=== PATIENT | male | born 1970 | race Two or more races ===

== ENCOUNTER 2020-06-03 12:39 | Outpatient (REF) | payer OTHER, SELFPAY ==
--- NOTE | 2020-06-03 | XR_ITS ---
EXAMINATION: XR SHOULDER, RIGHT XR SHOULDER, LEFT XR ELBOW, RIGHT XR ELBOW, LEFT CLINICAL INFORMATION: Joint pain. Evaluate for degenerative joint disease. COMPARISON: None. TECHNIQUE: AP, Grashey, scapular Y views of the right and left shoulder. AP, oblique, and lateral views of the right and left elbow. FINDINGS: Right Shoulder: No acute fracture or dislocation. Moderate acromioclavicular marginal osteophytes. Mild glenohumeral joint space narrowing with tiny inferior marginal osteophytes. No osseous erosion. No abnormal soft tissue calcification. Left Shoulder: No acute fracture or dislocation. Moderate acromioclavicular marginal osteophytes. Mild glenohumeral joint space narrowing with tiny inferior marginal osteophytes. No osseous erosion. No abnormal soft tissue calcification. Right Elbow: No acute fracture or dislocation. Mild ulnotrochlear joint space narrowing with small marginal osteophytes. Soft tissue ossifications measuring 0.3 and 0.1 cm adjacent to the medial epicondyle, which could indicate chronic underlying tendinopathy. Soft tissue ossification laterally measuring up to 0.5 cm, which could represent dystrophic ossification. No significant joint effusion. Left Elbow: No acute fracture or dislocation. Mild ulnotrochlear joint space narrowing with small marginal osteophytes. No osseous erosion. Dorsal olecranon enthesophyte. No significant joint effusion. XR/XR elbow LT min 3V IMPRESSION: RIGHT SHOULDER: Moderate acromioclavicular and minimal glenohumeral osteoarthritis. LEFT SHOULDER: Moderate acromioclavicular and minimal glenohumeral osteoarthritis. RIGHT ELBOW: Mild ulnotrochlear osteoarthritis. Ossification adjacent to the medial epicondyle, which could indicate chronic underlying tendinopathy. LEFT ELBOW: Mild ulnotrochlear osteoarthritis. Degenerative spurring at the dorsal olecranon.
--- NOTE | 2020-06-03 | XR_ITS ---
EXAMINATION: XR SHOULDER, RIGHT XR SHOULDER, LEFT XR ELBOW, RIGHT XR ELBOW, LEFT CLINICAL INFORMATION: Joint pain. Evaluate for degenerative joint disease. COMPARISON: None. TECHNIQUE: AP, Grashey, scapular Y views of the right and left shoulder. AP, oblique, and lateral views of the right and left elbow. FINDINGS: Right Shoulder: No acute fracture or dislocation. Moderate acromioclavicular marginal osteophytes. Mild glenohumeral joint space narrowing with tiny inferior marginal osteophytes. No osseous erosion. No abnormal soft tissue calcification. Left Shoulder: No acute fracture or dislocation. Moderate acromioclavicular marginal osteophytes. Mild glenohumeral joint space narrowing with tiny inferior marginal osteophytes. No osseous erosion. No abnormal soft tissue calcification. Right Elbow: No acute fracture or dislocation. Mild ulnotrochlear joint space narrowing with small marginal osteophytes. Soft tissue ossifications measuring 0.3 and 0.1 cm adjacent to the medial epicondyle, which could indicate chronic underlying tendinopathy. Soft tissue ossification laterally measuring up to 0.5 cm, which could represent dystrophic ossification. No significant joint effusion. Left Elbow: No acute fracture or dislocation. Mild ulnotrochlear joint space narrowing with small marginal osteophytes. No osseous erosion. Dorsal olecranon enthesophyte. No significant joint effusion. XR/XR shoulder RT min 2V IMPRESSION: RIGHT SHOULDER: Moderate acromioclavicular and minimal glenohumeral osteoarthritis. LEFT SHOULDER: Moderate acromioclavicular and minimal glenohumeral osteoarthritis. RIGHT ELBOW: Mild ulnotrochlear osteoarthritis. Ossification adjacent to the medial epicondyle, which could indicate chronic underlying tendinopathy. LEFT ELBOW: Mild ulnotrochlear osteoarthritis. Degenerative spurring at the dorsal olecranon.
--- NOTE | 2020-06-03 | XR_ITS ---
EXAMINATION: XR SHOULDER, RIGHT XR SHOULDER, LEFT XR ELBOW, RIGHT XR ELBOW, LEFT CLINICAL INFORMATION: Joint pain. Evaluate for degenerative joint disease. COMPARISON: None. TECHNIQUE: AP, Grashey, scapular Y views of the right and left shoulder. AP, oblique, and lateral views of the right and left elbow. FINDINGS: Right Shoulder: No acute fracture or dislocation. Moderate acromioclavicular marginal osteophytes. Mild glenohumeral joint space narrowing with tiny inferior marginal osteophytes. No osseous erosion. No abnormal soft tissue calcification. Left Shoulder: No acute fracture or dislocation. Moderate acromioclavicular marginal osteophytes. Mild glenohumeral joint space narrowing with tiny inferior marginal osteophytes. No osseous erosion. No abnormal soft tissue calcification. Right Elbow: No acute fracture or dislocation. Mild ulnotrochlear joint space narrowing with small marginal osteophytes. Soft tissue ossifications measuring 0.3 and 0.1 cm adjacent to the medial epicondyle, which could indicate chronic underlying tendinopathy. Soft tissue ossification laterally measuring up to 0.5 cm, which could represent dystrophic ossification. No significant joint effusion. Left Elbow: No acute fracture or dislocation. Mild ulnotrochlear joint space narrowing with small marginal osteophytes. No osseous erosion. Dorsal olecranon enthesophyte. No significant joint effusion. XR/XR elbow RT min 3V IMPRESSION: RIGHT SHOULDER: Moderate acromioclavicular and minimal glenohumeral osteoarthritis. LEFT SHOULDER: Moderate acromioclavicular and minimal glenohumeral osteoarthritis. RIGHT ELBOW: Mild ulnotrochlear osteoarthritis. Ossification adjacent to the medial epicondyle, which could indicate chronic underlying tendinopathy. LEFT ELBOW: Mild ulnotrochlear osteoarthritis. Degenerative spurring at the dorsal olecranon.
--- NOTE | 2020-06-03 | XR_ITS ---
EXAMINATION: XR LUMBOSACRAL SPINE CLINICAL INFORMATION: Joint pain. Evaluate for degenerative joint disease. COMPARISON: None TECHNIQUE: Three views of the lumbosacral spine. FINDINGS: Normal vertebral body alignment. The lumbar lordosis is maintained. Minimal loss of anterior vertebral body height at L2, which may represent normal variation versus a minimal, age indeterminant anterior endplate compression fracture. Mild multilevel loss of intervertebral disc height with anterior endplate osteophytes, most prominent at L3-L4. No lytic or blastic osseous lesion. No abnormal soft tissue calcification. XR/XR lumbar spine 2-3V IMPRESSION: 1. Minimal loss of anterior vertebral body height at L2, which may represent normal variation versus a minimal, age indeterminant anterior endplate compression fracture. 2. Mild multilevel degenerative disc disease, most prominent at L3-L4.
--- NOTE | 2020-06-03 | XR_ITS ---
EXAMINATION: XR SHOULDER, RIGHT XR SHOULDER, LEFT XR ELBOW, RIGHT XR ELBOW, LEFT CLINICAL INFORMATION: Joint pain. Evaluate for degenerative joint disease. COMPARISON: None. TECHNIQUE: AP, Grashey, scapular Y views of the right and left shoulder. AP, oblique, and lateral views of the right and left elbow. FINDINGS: Right Shoulder: No acute fracture or dislocation. Moderate acromioclavicular marginal osteophytes. Mild glenohumeral joint space narrowing with tiny inferior marginal osteophytes. No osseous erosion. No abnormal soft tissue calcification. Left Shoulder: No acute fracture or dislocation. Moderate acromioclavicular marginal osteophytes. Mild glenohumeral joint space narrowing with tiny inferior marginal osteophytes. No osseous erosion. No abnormal soft tissue calcification. Right Elbow: No acute fracture or dislocation. Mild ulnotrochlear joint space narrowing with small marginal osteophytes. Soft tissue ossifications measuring 0.3 and 0.1 cm adjacent to the medial epicondyle, which could indicate chronic underlying tendinopathy. Soft tissue ossification laterally measuring up to 0.5 cm, which could represent dystrophic ossification. No significant joint effusion. Left Elbow: No acute fracture or dislocation. Mild ulnotrochlear joint space narrowing with small marginal osteophytes. No osseous erosion. Dorsal olecranon enthesophyte. No significant joint effusion. XR/XR shoulder LT min 2V IMPRESSION: RIGHT SHOULDER: Moderate acromioclavicular and minimal glenohumeral osteoarthritis. LEFT SHOULDER: Moderate acromioclavicular and minimal glenohumeral osteoarthritis. RIGHT ELBOW: Mild ulnotrochlear osteoarthritis. Ossification adjacent to the medial epicondyle, which could indicate chronic underlying tendinopathy. LEFT ELBOW: Mild ulnotrochlear osteoarthritis. Degenerative spurring at the dorsal olecranon.
== END 2020-06-03 12:40 | disposition home or self-care (01) ==
LOC: HO.HMGCX 12:39
PROVIDERS: Visit Provider Internal Medicine
DX: M47.817 Spondylosis without myelopathy or radiculopathy, lumbosacral region (principal); M19.012 Primary osteoarthritis, left shoulder; M19.011 Primary osteoarthritis, right shoulder; M19.021 Primary osteoarthritis, right elbow; M19.022 Primary osteoarthritis, left elbow
CPT/HCPCS: 72100; 73030; 73080

== ENCOUNTER 2023-12-14 09:00 | Outpatient (AMB) | payer BC, SELFPAY ==
--- NOTE | 2023-12-14 09:01 | A.OFFPC_ITS ---
Vital Signs 12/14/23 09:05 Height 5 ft 9 in Weight 164 lb BMI 24.2 BP 126/80 Blood Pressure Location Rt brachial Position Sitting Pulse 62 Pulse Source Pulse Oximeter Pulse Oximetry (%) 96 Oxygen Delivery Method Room Air Intake Visit Reasons: Est. Care/Requesting PE Intake Note: pt is here for new patient, establish care. patient states his left shoulder has been bothering him as well as his left heel. Recruit Instructor Required: No Allergies No Known Allergies Allergy (Verified 12/14/23 09:02) Medication List - Last Reconciled 12/14/23 by VLAD Lance No Known Home Meds Tobacco use date assessed: 12/14/23 Dental Screening Dental Screen Date: 12/14/23 Did you have a dental visit in the last 12 months?: Yes Did you have a dental problem in the last 6 months where you did not have access to dental care?: No Was dental information given to patient?: Patient has dentist HPI Est. Care/Requesting PE HPI Details New pt is here for a PE. Will order labs. Due for PSA, will order. Denies dribbling with urination, weak stream, and frequent nocturia. Pt reports having a colon screen approximately 7-8 years ago. He has a family hx of colon cancer (brother diagnosed at age 65). Will refer to GI. Pt c/o left heel pain. ? plantar fasciitis vs heel spur. Will order XR. Pt also c/o left anterior shoulder pain. He had a previous XR which showed moderate acromioclavicular and minimal glenohumeral osteoarthritis. Pt has seen a chiropractor for this. Will refer to PT. [facility] Surgical History No pertinent past surgical history Family History Mother No problems noted. Father Diabetes High blood pressure Social History Housing: House Alcohol intake: current Alcohol intake frequency: a few times a month Patient Tobacco Use Status: Never used Tobacco e-Cigarette/Vaping Use: Never Used Second Hand Smoke Exposure: No service: No Current occupational status: employed Current occupation: [employer] [place] [employer] Current occupational exposures/hazards: No Cognitive needs: No Hearing needs: No Vision needs: Yes Questionnaire PHQ-9 Over the last 2 weeks, how often have you been bothered by any of the following problems? 1. Little interest or pleasure in doing things: not at all 2. Feeling down, depressed, or hopeless: not at all 3. Trouble falling or staying asleep, or sleeping too much: not at all 4. Feeling tired or having little energy: not at all 5. Poor appetite or overeating: not at all 6. Feeling bad about yourself - or that you are a failure or have let yourself or your family down: not at all 7. Trouble concentrating on things, such as reading the newspaper or watching television: not at all 8. Moving or speaking so slowly that other people could have noticed. Or the opposite - being so fidgety or restless that you have been moving around a lot more than usual: not at all 9. Thoughts that you would be better off or of hurting yourself in some way: not at all Total score: 0 Depression Screening Interpretation: Negative Depression Screening Done: Yes 32790 - PHQ-9 Billing: Yes Source: Developed by Drs. Darrell England, Karissa Small, Jonathan Pinto and colleagues, with an educational sixto from [employer]. Thrive Questionnaire Date Thrive assessed: 12/14/23 I am a: Patient What is your living situation today?: I have a steady place to live Within the past 12 months, did the food you bought not last and you didn't have the money to get more?: Never true Within the past 12 months, did you worry whether your food would run out before you got money to buy more?: Never true Do you have trouble paying for medicines?: No Do you have trouble getting transportation to medical appointments?: No Do you have trouble paying your heating and electricity bill?: No Do you have trouble taking care of your child, family member or friend?: No Do you have trouble with day-to-day activities such as bathing, preparing meals, shopping, managing finances, etc.?: No Are you currently unemployed and looking for a job?: No Are you interested in more education?: No Please select the resources that you would like help with: None Currently or been in a relationship where the following occur: No concerns reported THRIVE Score: 0 AUDIT C Alcohol Use Questionnaire (AUDIT-C) 1. How often do you have a drink containing alcohol?: 2-3 times a week 2. How many drinks containing alcohol do you have on a typical day when you are drinking?: 1 or 2 3. How often do you have six or more drinks on one occasion?: Less than monthly Total Score: 4 Score Reviewed/Action Taken: Yes ENRIQUE-7 AMB Questionnaire ENRIQUE-7 Date ENRIQUE - 7 assessed: 12/14/23 Feeling nervous, anxious, or on edge: 0 = Not at all Not being able to stop or control worryin = Not at all Worrying too much about different things: 0 = Not at all Trouble relaxin = Not at all Being so restless that it is hard to sit still: 0 = Not at all Becoming easily annoyed or irritable: 0 = Not at all Feeling afraid as if something awful might happen: 0 = Not at all Total ENRIQUE-7 score (0-4 normal; 5-9 mild; 10-14 moderate; 15-21 severe): 0 Source: Developed by Drs. Darrell England, Karissa Small, Jonathan Pinto and colleagues, with an educational sixto from [employer]. ENRIQUE-7 Assessment Billing ENRIQUE-7 Assessment Tool: ENRIQUE-7 Assessment 82634 Review of Systems Const Denies chills and Denies fever(s) Eyes Denies blurry vision ENT Denies vertigo, Denies dizziness and Denies sore throat Card Denies chest pain at rest, Denies chest pain with activity, Denies diaphoresis, Denies dyspnea and Denies dyspnea on exertion Resp Denies cough, Denies dyspnea, Denies dyspnea on exertion and Denies wheezing GI Denies abdominal pain, Denies melena, Denies hematochezia, Denies constipation, Denies diarrhea and Denies loose stools Denies hematuria Musc Denies numbness and Denies tingling Skin/Breast Denies lesions Neuro Denies vertigo, Denies dizziness, Denies numbness and Denies tingling Psych Denies anxiety, Denies depression, Denies homicidal ideation, Denies suicidal ideation and Denies other (substance abuse) Aller/Immun Denies wheezing Physical exam (Primary Care) Vital Signs: Last Vital Signs Pulse 62 12/14/23 09:05 BP 126/80 12/14/23 09:05 Pulse Ox 96 12/14/23 09:05 Oxygen Delivery Method Room Air 12/14/23 09:05 BMI result Body Mass Index 24.2 Tobacco/Smoking Status: Tobacco use Status Tobacco use date assessed 12/14/23 12/14/23 09:03 Patient Tobacco Use Status Never used Tobacco 12/14/23 09:08 e-Cigarette/Vaping Use Never Used 12/14/23 09:08 PHQ-9: PHQ-9 Score PHQ-9: Total score 0 12/14/23 09:03 Depression Screening Interpretation: Negative Thrive Assessment: Date of Thrive Assessment Date Thrive assessed 12/14/23 12/14/23 09:03 Currently or been in a relationship where the following occur: No concerns reported Const General: cooperative Nutritional Appearance: well nourished Orientation/consciousness: patient oriented x3 HENMT Head: Yes normal to inspection, Yes normocephalic and Yes atraumatic Ears: TM's normal bilaterally Eyes General: appearance normal, both eyes and all related structures Alignment and Position: alignment normal and position normal Neck Neck: Yes normal visual inspection and Yes no lymphadenopathy Thyroid: Thyroid normal Resp Effort & Inspection: normal respiratory effort Auscultation: clear to auscultation bilaterally Cardio Rate: regular rate Rhythm: regular rhythm Heart sounds: S1 normal heart sound present, S2 normal heart sound present and no murmurs GI Palpation (GI): Soft to palpation and nontender Auscultation: normal bowel sounds Male General Exam: Yes normal external exam Penis: normal penis Scrotum: scrotum normal, testes descended bilaterally and no inguinal hernias Testes: no testicular mass Skin Rashes: no rashes Neuro General: patient oriented x3, moves all extremities, no focal motor deficits and deep tendon reflexes 2+ bilaterally Romberg Test: Negative Extrem Other: left shoulder: + neers, + jobes, tenderness noted with dorsi flexion of toes and palpation of left heel Psych Appearance: grossly normal Mental Status: mental status grossly normal Speech and movement: Normal speech and movement present Affect: normal affect Attitude: cooperative Thought process: Normal thought process present Thought content: Normal thought content present Insight: Good insight present (Psych) Judgement: Good judgement present (Psych) Assessment and Plan Assessment & Plan (1) Physical exam: Code(s): Z00.00 - Encounter for general adult medical examination without abnormal findings Plan: Labs ordered (2) Screening for prostate cancer: Code(s): Z12.5 - Encounter for screening for malignant neoplasm of prostate Plan: PSA ordered (3) Screening for colon cancer: Code(s): Z12.11 - Encounter for screening for malignant neoplasm of colon Plan: Referred to GI (4) Family hx of colon cancer: Code(s): Z80.0 - Family history of malignant neoplasm of digestive organs Plan: Referred to GI (5) Pain of left heel: Code(s): M79.672 - Pain in left foot Plan: XR ordered (6) Left shoulder pain: Code(s): M25.512 - Pain in left shoulder Plan: PT Plan The patient agreed to the use of a medical billing representative for this encounter. Scribed for ASHLEY Zepeda-BC by Carmina Denson medical billing representative, on 12/14/2023 at 09:15 EST. Orders: Orders Complete Blood Count Auto Diff Today Z00.00 - Encounter for general adult medical examination without abnormal findings Comprehensive [place]. Panel Fast Today Z00.00 - Encounter for general adult medical examination without abnormal findings TSH reflex Free T4 Today Z00.00 - Encounter for general adult medical examination without abnormal findings UA CC w/rflx Micro + Cult Today Z00.00 - Encounter for general adult medical examination without abnormal findings Prostate Specific Antigen Scr Today Z12.5 - Encounter for screening for malignant neoplasm of prostate XR foot LT 2V Today M79.672 - Pain in left foot PT Evaluation and Treatment Today M25.512 - Pain in left shoulder Lipid Panel Today Z00.00 - Encounter for general adult medical examination without abnormal findings Referrals Gastroenterology Referral Z12.11 - Encounter for screening for malignant neoplasm of colon, Z80.0 - Family history of malignant neoplasm of digestive or siri Coding Level of Care Code New Pt Prev Care 40-64y([id number]) Diagnoses Physical exam Z00.00 Screening for prostate cancer Z12.5 Screening for colon cancer Z12.11 Family hx of colon cancer Z80.0 Pain of left heel M79.672 Left shoulder pain M25.512 Additional Codes ENRIQUE-7 Assessment Billing - ENRIQUE-7 Assessment Tool: ENRIQUE-7 Assessment [id number] ([id number])
[2023-12-14 09:05] VITALS: BP 126/80; PULSE 62; O2SAT 96; BMI 24.2
== END 2023-12-14 09:32 | disposition home or self-care (01) ==
PROVIDERS: PCP Nurse Practitioner Adult Health; Visit Provider Nurse Practitioner Family
DX: Z00.00 Encounter for general adult medical examination without abnormal findings (principal); M79.672 Pain in left foot; M25.512 Pain in left shoulder; Z12.5 Encounter for screening for malignant neoplasm of prostate; Z12.11 Encounter for screening for malignant neoplasm of colon; Z80.0 Family history of malignant neoplasm of digestive organs
CPT/HCPCS: 99386

== ENCOUNTER 2023-12-14 09:33 | Outpatient (REF) | payer BC, SELFPAY ==
--- NOTE | ~2023-12-14 | XR_ITS ---
EXAMINATION: XR FOOT, LEFT CLINICAL INFORMATION: Pain in left foot. COMPARISON: None available. TECHNIQUE: 2 views of the left foot. FINDINGS: Small plantar calcaneal spur. Mild posterior calcaneal spurring. Radiopaque marker placed by technologist to indicate the area of concern as indicated by the patient Toes are flexed, limiting evaluation. Along the medial aspect of the distal leg/ankle on the AP view. This area is not well evaluated on the AP view and dedicated views of the ankle should be considered for further evaluation. Moderate degenerative changes in the first metatarsophalangeal joint with joint space narrowing and hypertrophic change. XR/XR foot LT 2V IMPRESSION: 1. Moderate degenerative changes first metatarsophalangeal joint. 2. Small plantar calcaneal spur. Mild posterior calcaneal spurring. 3. Radiopaque marker placed by technologist to indicate the area of concern as indicated by the patient. Along the medial aspect of the distal leg/ankle on the AP view. This area is not well evaluated on the AP view and dedicated views of the ankle should be considered for further evaluation. Electronically signed by: Bailey Garrido MD 01/10/2024 10:35 AM EDT
== END 2023-12-14 09:34 | disposition home or self-care (01) ==
LOC: HO.HMGCX 09:33
PROVIDERS: PCP Nurse Practitioner Family; Visit Provider Nurse Practitioner Family
DX: M79.672 Pain in left foot (principal)
CPT/HCPCS: 73620

== ENCOUNTER 2023-12-20 15:17 | Outpatient (REF) | payer BC, SELFPAY ==
--- NOTE | ~2023-12-20 | US_ITS ---
EXAMINATION: US THYROID CLINICAL INFORMATION: Thyroid nodule. COMPARISON: None available. TECHNIQUE: Linear transducer grayscale and color Doppler examination with attention to the region of the thyroid. FINDINGS: SIZE: Measurements of the thyroid lobes and nodules are given in sagittal, anteroposterior and transverse dimensions respectively. Right Thyroid Lobe: 6.0 x 1.8 x 1.7 cm, volume 9.6 mL. Parenchyma: The gland echotexture is mildly heterogeneous. Thyroid vascularity is increased. Left Thyroid Lobe: 5.1 x 2.0 x 1.8 cm, volume 9.1 mL. Parenchyma: The gland echotexture is mildly heterogeneous. Thyroid vascularity is increased. Isthmus: 0.2 cm in maximum AP dimension. Estimated total number of nodules greater than or equal to 1 cm: 0. [employer] nodules are described as follows: NODES: No lymphadenopathy is seen in the tissue surrounding the thyroid gland. US/US thyroid IMPRESSION: Diffusely heterogeneous, hypervascular thyroid gland. No suspicious thyroid nodules identified. ACR TI-RADS RECOMMENDATION REFERENCE: Ultrasound-guided fine-needle aspiration, followup ultrasound, no further follow up. * TR1 (0 point) and TR2 (2 points): No FNA or follow up. * TR3 (3 points): FNA if more than or equal to 2.5 cm in maximum dimension, followup ultrasound in 1, 3 and 5 years if 1.5 to 2.4 cm in maximum dimension. * TR4 (4-6 points): FNA if more than or equal to 1.5 cm in maximum dimension, followup ultrasound in 1, 2, 3 and 5 years if 1 to 1.4 cm in maximum dimension. * TR5 (more than or equal to 7 points): FNA if more than or equal to 1 cm in maximum dimension, followup ultrasound every year for 5 years if 0.5 to 0.9 cm in maximum dimension. * TR3, TR4 or TR5 nodules that are below the size threshold for followup receive no follow up. Electronically signed by: Bailey Garrido MD 01/04/2024 10:22 AM EDT
== END 2023-12-20 15:18 | disposition home or self-care (01) ==
LOC: HO.HMGCX 15:17
PROVIDERS: PCP Nurse Practitioner Family; Visit Provider Nurse Practitioner Family
DX: E04.1 Nontoxic single thyroid nodule (principal)
CPT/HCPCS: 76536

== ENCOUNTER 2023-12-27 06:33 | Outpatient (REF) | payer BC, SELFPAY ==
[2023-12-27 10:31] LABS: MANUAL DIFF FLAG NO
[2023-12-27 10:35] LABS: Basophils Percent Auto 0.4 % (0-2); Eosinophils Absolute Auto 0.1 X10*3/uL (0.0-0.4); Hematocrit 45.9 % (42.0-52.0); Hemoglobin 15.8 g/dl (14.0-18.0); Imm Gran Abs Auto 0.01 X10*3/uL (0.00-0.03); Imm Gran Pct Auto 0.2 % (0.0-0.4); Lymphocytes Absolute Auto 1.8 X10*3/uL (1.2-4.9); Lymphocytes Percent Auto 37.2 % (20-40); Mean Corpuscular HGB Conc 34.4 g/dl (31.0-36.0); Mean Corpuscular Hemoglobin 31.5 pg (27.0-33.0); Mean Corpuscular Volume 91.6 fL (80.0-98.0); Mean Platelet Volume 10.4 fL (9.4-12.4); Monocytes Absolute Auto 0.5 X10*3/uL (0.1-1.2); Monocytes Percent Auto 9.4 % (2-11); Neutrophils Absolute Auto 2.5 x10*3/uL (2.0-8.3); Neutrophils Percent Auto 50.8 % (45-73); Platelet Count 220 X10*3/uL (160-400); Red Blood Count 5.01 X10*6/uL (4.60-5.80); Red Cell Distribution Width 11.8 % (11.0-16.0); White Blood Count 4.9 X10*3/uL (4.8-10.8)
[2023-12-27 10:54] LABS: Appearance Urine Clear; Color Urine Yellow; Glucose Urine UA Negative (Negative); Leukocyte Esterase Urine Negative (Negative); Nitrite Urine Negative (Negative); PH 6.5 (5.0-9.0); UMIC TRIGGER UACC YES; Urine Blood Trace (Negative); Urine Ketones Negative (Negative); Urine Protein Negative (Neg-Trace)
[2023-12-27 10:57] LABS: Alanine Aminotransferase 29 U/L (0-40); Albumin Level 4.1 g/dL (3.5-5.0); Alkaline Phosphatase 38 U/L (39-117); Anion Gap 10 (12-20); Aspartate Amino Transferase 29 U/L (5-37); Bilirubin Total 0.7 mg/dL (0.0-1.0); Blood Urea Nitrogen 16 mg/dL (9-16); Calcium 9.7 mg/dL (8.4-10.2); Carbon Dioxide 28 mmol/L (22-29); Chloride 104 mmol/L (96-108); Cholesterol 184 mg/dL (<200); Estimated Glomerular Filt Rate > 60; Glucose Fasting 93 mg/dL (60-99); HDL Cholesterol 44 mg/dL (>40); LDL Cholesterol Calculated 119 mg/dL (<100); Potassium 4.1 mmol/L (3.3-5.1); Sodium 138 mmol/L (135-145); Total Protein 7.6 g/dL (6.5-8.0); Triglycerides 105 mg/dL (<150)
[2023-12-27 10:59] LABS: Bacteria Urine None Seen (None Seen); Hyaline Casts Urine 0-2 /LPF (0-2); Squamous Epithelial Cell Urine 0-2 /HPF (0-2); WBC Urine 0-5 /HPF (0-5)
[2023-12-27 11:07] LABS: Prostate Specific Antigen Scr 0.37 ng/mL (<0.05-4.0)
[2023-12-27 11:15] LABS: TSH reflex Free T4 1.29 uIU/mL (0.32-4.0)
== END 2023-12-27 06:34 | disposition home or self-care (01) ==
LOC: HO.HMGCLDS 06:33
PROVIDERS: PCP Nurse Practitioner Family; Visit Provider Nurse Practitioner Family
DX: Z00.00 Encounter for general adult medical examination without abnormal findings (principal); Z12.5 Encounter for screening for malignant neoplasm of prostate
CPT/HCPCS: 36415; 80053; 80061; 81001; 84153; 84443; 85025

== ENCOUNTER 2023-12-31 08:23 | Outpatient (REF) | payer BC, SELFPAY ==
[2023-12-31 11:20] LABS: Urine Cytology See Pathology rpt
[2023-12-31 11:28] LABS: Appearance Urine Clear; Color Urine Yellow; Glucose Urine UA Negative (Negative); Leukocyte Esterase Urine Negative (Negative); Nitrite Urine Negative (Negative); PH 6.5 (5.0-9.0); Specific Gravity - Urine <= 1.005 (1.005-1.025); Urine Blood Negative (Negative); Urine Ketones Negative (Negative); Urine Protein Negative (Neg-Trace)
[2023-12-31 11:33] LABS: Bacteria Urine None Seen (None Seen); Hyaline Casts Urine 0-2 /LPF (0-2); RBC Urine 0-2 /HPF (0-2); Squamous Epithelial Cell Urine 0-2 /HPF (0-2); WBC Urine 0-5 /HPF (0-5)
== END 2023-12-31 08:24 | disposition home or self-care (01) ==
LOC: HO.HMGCLDS 08:23
PROVIDERS: PCP Nurse Practitioner Family; Visit Provider Nurse Practitioner Family
DX: Z00.00 Encounter for general adult medical examination without abnormal findings (principal); R31.29 Other microscopic hematuria
CPT/HCPCS: 81001; 81003; 87086; 88112

== ENCOUNTER 2024-01-24 13:53 | Outpatient (RCR) | payer BC, SELFPAY ==
--- NOTE | 2024-01-24 15:16 | MHC.PT.EP ---
[facility] [place] Office [place] Office [place] Office [address] Renée Chan [address] [phone] F: [phone] F: [phone] F: [phone] F: [phone] Physical Therapy Plan of Care Date of Evaluation: 01/24/24 Date of Surgery: Diagnosis: This is a 54 yo male presenting to skilled PT with a script for pain in L shoulder. Assessment: This is a 54 yo male presenting to skilled PT with a script for pain in L shoulder. Patient with ongoing L shoulder pain for about 4 years, progressively getting worse with time. He has been to chiropractor which helped for the day but then the pain returned and was worse in nature (not currently doing this anymore). Pain increases at night when laying on the R, pulling, driving, OH reaching. His pain is constant. His pain is located at the upper trap, ACJ and lateral arm. He gets JORDAN's from his pain and also reports B hand numbness. He takes Advil for pain relief. Assessment reveals pain that ranges from up to a 7/10 at the worst. Patient demos decreased L shoulder and cervical ROM, strength of L shoulder, upper back and scapular stabilizers. He demos increased scapular winging on the L, upper trap compensatory movements, very forward head posture as well as increased thoracic kyphosis. He was TTP at GHJ joint line, UT, medial border of scap and thoracic spine. He would benefit from PT focusing on cervical, thoracic and shoulder ROM, strengthening. Based on functional limitations, impaired QOL and pain tolerance patient is a good candidate for skilled PT 2x/wk for 6wks. Frequency and Duration: The patient will be seen 2x/wk for 4wks Short Term Goals: (In 2 weeks) Demo I with HEP Improve shoulder AROM by at least 10 degs Demo proper scapular recruitment with appropriate shoulder strengthening exercises, decreased scapular winging will be noted with shoulder motions Alf Goals: (in 6 wks) Improve shoulder nonpainful AROM to almost near equal B Demo at least 1 grade improvement in MMT for shoulder Improve SPADI by at least 10 points Improve overall functional QOL by at least 50% Treatment Plan: Modalities to reduce pain, spasms and effusion. Manual therapy to restore motion and function. Therapeutic exercise to improve strength and flexibility. Neuromuscular re-education for posture and balance. Therapeutic activities to return to functional activities of daily living. Electronically signed by: Dimple Judge PT Please sign and return to therapist. Thank you for your referral.
--- NOTE | 2024-02-10 07:13 | MHC.PT.DC ---
[facility] [place] Office [place] Office [place] Office [address] [phone] F: [phone] F: [phone] F: [phone] F: [phone] Physical Therapy Discharge Report Diagnosis: This is a 54 yo male presenting to skilled PT with a script for pain in L shoulder. Date of Surgery: Date of Evaluation: 01/24/24 Date of Discharge: 02/10/24 Treatments to Date: 1 Cancellations to Date: 2 No Shows to Date: 0 Discharge Status: Physician Discontinued Tx Recommend MD Follow-up Discharge Summary: Patient had a new incident at work causing fractured ribs. Due to new change in status, patient was DC'd and he will follow up with us again when medically cleared by PCP or ortho. Electronically signed by: Dimple Judge PT Please sign and return to therapist. Thank you for your referral.
== END 2024-02-10 07:15 | disposition home or self-care (01) ==
LOC: HO.PTCHIC 13:53
PROVIDERS: PCP Nurse Practitioner Family; Visit Provider Nurse Practitioner Family
DX: M25.512 Pain in left shoulder (principal)
CPT/HCPCS: 97110; 97162

== ENCOUNTER 2024-02-09 15:29 | Outpatient (REF) | payer BC, SELFPAY ==
--- NOTE | ~2024-02-09 | CT_ITS ---
EXAMINATION: CT UROGRAM - CT ABDOMEN AND PELVIS WITHOUT AND WITH CONTRAST CLINICAL INFORMATION: Microscopic hematuria COMPARISON: CT abdomen and pelvis 04/04/2008 TECHNIQUE: Multidetector volumetric imaging was performed through the abdomen prior to IV contrast. The abdomen and pelvis were then reexamined after the administration of 85 mL Omnipaque 350 intravenous contrast. Additional 2-D coronal and sagittal reformatted images and axial 3-D maximum intensity projection MIP images are generated on the CT workstation. This CT examination was performed using dose optimization techniques as appropriate, variously including the following: *Automated exposure control *Adjustment of mA and/or kV according to patient size (this includes techniques or standardized protocols for targeted exams where dose is matched to indication/reason for exam; i.e. extremities or head) *Use of iterative reconstruction technique DLP: 767 mGy-cm UROGRAPHIC FINDINGS: Noncontrast imaging through the kidneys ureters and bladder show no urinary tract calculi.After the injection of contrast, there was prompt excretion bilaterally with symmetric CT nephrograms.The right kidney measures 12.0 cm and the left kidney measures 11.7 cm in maximal length. There are bilateral extrarenal pelves. No hydronephrosis. No filling defects are seen in the collecting systems. No mucosal abnormalities are seen. There are no renal masses. There are single ureters present which follow a normal course to the bladder. Bladder appears unremarkable. Bilateral ureteral jets are seen. The prostate is minimally enlarged measuring 4.4 x 2.9 x 4.7 cm for a volume of 31 cc. Seminal vesicles appear normal. The bladder is only mildly distended and has a symmetrically thickened wall no filling defects are seen. The bladder is only partially filled with contrast and evaluation for bladder masses is suboptimal. NON-UROGRAPHIC FINDINGS: Lung Bases: There is right basilar atelectasis present with a tiny right pleural effusion. No left-sided effusion is seen. No suspicious lung masses Liver, Gallbladder and Biliary Tree: The liver is normal in size, shape, and attenuation. The superior aspect of the right lobe of the liver is not included on the exam. No focal hepatic lesion or biliary ductal dilatation is seen. The gallbladder is unremarkable with no evidence of radiopaque gallstones, gallbladder wall thickening, or obvious pericholecystic inflammatory changes. Pancreas: Unremarkable. Spleen: Unremarkable. Adrenal Glands: Unremarkable. Gastrointestinal Tract: The small and large bowel are unremarkable. The appendix is unremarkable. Abdominal Wall: No significant hernia is appreciated. Lymph Nodes: Normal. Vascular: Unremarkable. Pelvic Viscera: An abnormal pelvic mass is not seen. Osseous Structures: Mild degenerative changes are present in the spine A bone island is seen in the right iliac bone. CT/CT urogram IMPRESSION: 1. A cause for the patient's microscopic hematuria has not been found. 2. Incidental note made of a tiny right pleural effusion with right basilar atelectasis and mild degenerative changes in the spine. Electronically signed by: Juanpablo Duron MD 04/04/2024 08:32 AM EST
[2024-02-09 16:02] LABS: Alanine Aminotransferase 23 U/L (0-40); Albumin Level 4.3 g/dL (3.5-5.0); Alkaline Phosphatase 42 U/L (39-117); Anion Gap 11 (12-20); Aspartate Amino Transferase 18 U/L (5-37); Bilirubin Total 0.5 mg/dL (0.0-1.0); Blood Urea Nitrogen 18 mg/dL (9-16); Calcium 9.5 mg/dL (8.4-10.2); Carbon Dioxide 29 mmol/L (22-29); Chloride 102 mmol/L (96-108); Estimated Glomerular Filt Rate > 60; Glucose Random 91 mg/dL (60-115); Sodium 138 mmol/L (135-145); Total Protein 7.9 g/dL (6.5-8.0)
[2024-02-09] MEDS: iohexoL 350 MG/ML 100 ML INFUS..BTL IV (17:06)
== END 2024-02-09 15:30 | disposition home or self-care (01) ==
LOC: HO.CT 15:29
PROVIDERS: PCP Nurse Practitioner Family; Visit Provider Nurse Practitioner Family
DX: R31.29 Other microscopic hematuria (principal)
CPT/HCPCS: 36415; 74178; 80053; Q9967

== ENCOUNTER 2024-02-21 13:48 | Outpatient (REF) | payer BC, SELFPAY ==
[2024-02-21 17:24] LABS: Urine Cytology See Pathology rpt
== END 2024-02-21 13:49 | disposition home or self-care (01) ==
LOC: HO.LNP 13:48
PROVIDERS: PCP Nurse Practitioner Family; Visit Provider Nurse Practitioner Family
DX: R31.0 Gross hematuria (principal)
CPT/HCPCS: 81003; 88112

== ENCOUNTER 2024-02-21 13:48 | Outpatient (AMB) | payer BC, SELFPAY ==
--- NOTE | 2024-02-21 14:10 | A.OFFVIS_ITS ---
Intake Visit Reasons: microscopic hematuria Intake Note: New Patient presents for initial visit for microhematuria Urology Medications: none Blood Thinner: none Hand Singer Required: No Accompanied by: Unknown Allergies No Known Allergies Allergy (Verified 02/21/24 14:50) Medication List - Last Reconciled 02/21/24 by VLAD Morales acetaminophen ER 650 mg PO Q8H PRN ibuprofen mg PO methocarbamol mg PO oxycodone 5 mg PO Q6H PRN HPI Comments Details: Neri is a pleasant 54-year-old male patient of Dr. Gonsalez who was accompanied by his significant other at today's office visit. He presents to the office today as a new patient for microscopic/gross hematuria. In discussion with the patient today he reports noting a few episodes of gross hematuria after consumption of hard alcohol. He reports having followed up with his PCP at which time a CT urogram was ordered for further assessment evaluation. These results remain pending. When asked he denies any previous history of nicotine dependence and or workplace chemical exposure. He currently denies any bothersome urinary issues. Previous urine cytology results reviewed with the patient today. 12/23 Negative for high-grade urothelial carcinoma. We discussed at length reasons for blood in the urine may include but are not limited to kidney stones, cancer in the urinary tract, BPH, kidney stone disease or inflammatory conditions of the urinary tract. I have discussed workup to include cystoscopy evaluation. He denies urinary urgency, urinary frequency, incontinence, nocturia, dysuria, foul smelling urine, changes to urinary stream, flank pain, fever, and or chills. He is happy with his current voiding parameters. In review of patients chart PSA 12/23 0.4. PFSH Surgical History No pertinent past surgical history Family History Mother No problems noted. Father Diabetes High blood pressure Social History Housing: House Alcohol intake: current Alcohol intake frequency: a few times a month Patient Tobacco Use Status: Never used Tobacco e-Cigarette/Vaping Use: Never Used Second Hand Smoke Exposure: No service: No Current occupational status: employed Current occupation: [employer] Current occupational exposures/hazards: No Cognitive needs: No Hearing needs: No Vision needs: Yes Review of Systems Const All systems reviewed & are unremarkable except as noted in HPI and below Physical Exam Const General: cooperative, healthy appearing, comfortable, no acute distress, well developed, alert and awake Orientation/consciousness: patient oriented x3 Limitations: no limitations HEENT Head: Yes normal to inspection, Yes normocephalic and Yes atraumatic Ears: hearing grossly normal bilaterally Eyes General: appearance normal, both eyes and all related structures Neck Neck: Yes normal visual inspection and Yes trachea midline Chest Chest palpation & inspection: normal inspection of the chest Resp Effort & Inspection: normal respiratory effort and able to speak in complete sentences Cardio Rate: regular rate GI Inspection: Yes normal to inspection General: Yes no CVA tenderness Back/Spine/Pelvis Back: no CVA tenderness Skin General skin exam: no rashes or lesions noted Neuro General: patient oriented x3 Extrem General: Yes normal to inspection Psych Appearance: grossly normal and well kempt Mental Status: mental status grossly normal Speech and movement: Normal speech and movement present and Clear speech present Affect: normal affect Attitude: cooperative Thought process: Normal thought process present Thought content: Normal thought content present Insight: Fair insight present (Psych) Judgement: Fair judgement present (Psych) Results AMB Urinalysis, Automated UA Leukoctes 0 Sophia/uL Last Edit by Tim Cano on 02/21/24 14:24 UA Nitrite Last Edit by Tim Cano on 02/21/24 14:24 UA Urobilinogen 0.2 mg/dL Last Edit by Tim Cano on 02/21/24 14:24 UA Protein 15 mg/dL Last Edit by Tim Cano on 02/21/24 14:24 UA pH 6.0 Last Edit by Tim Cano on 02/21/24 14:24 UA Blood 80 Josh/uL Last Edit by Tim Lucaseladia on 02/21/24 14:24 UA Specific [place] 1.020 Last Edit by Tim Lucaseladia on 02/21/24 14:24 UA Ketone Last Edit by Tim Lucaseladia on 02/21/24 14:24 UA Bilirubin 2 mg/dL Last Edit by Tim Lucaseladia on 02/21/24 14:24 UA Glucose 0 mg/dL Last Edit by Himamartinez Shayyeladia on 02/21/24 14:24 Results Reviewed Results Reviewed: Laboratory Last Values Urine pH (Auto) 6.0 02/21/24 14:22 Specific [place] (Auto) 1.020 02/21/24 14:22 Urine Protein (Auto) 15 mg/dL 02/21/24 14:22 Glucose (UA)(Auto) 0 mg/dL 02/21/24 14:22 Urine Blood (Auto) 80 Josh/uL 02/21/24 14:22 Urine Bilirubin (Auto) 2 mg/dL 02/21/24 14:22 Urine Urobilinogen (Auto) 0.2 mg/dL 02/21/24 14:22 Leukocyte Esterase (Auto) 0 Sophia/uL 02/21/24 14:22 Assessment & Plan Assessment & Plan (1) Microhematuria: Code(s): R31.29 - Other microscopic hematuria Category: Medical (2) Gross hematuria: Code(s): R31.0 - Gross hematuria Category: Medical Plan In office urinalysis results reviewed with the patient today; will send for urine cytology. Recent urine cytology results reviewed with the patient today; as noted above. CT urogram remains pending. Previous PSA results reviewed with the patient today; as noted above. Discussed at length potential causes of microscopic hematuria as well as further workup to include in office cystoscopy. Risks and benefits were discussed of further intervention. All questions were answered. He denies any bothersome urinary issues or concerns at this time. Discussed bladder triggers/irritants. He reports be happy with current voiding parameters. Will schedule for next available in office cystoscopy. Follow-up per doctor's orders; or sooner with any issues, concerns, and or questions. Orders: Orders AMB Urinalysis Automated Today Z13.9 - Encounter for screening, unspecified Patient Instructions: The patient had an opportunity to ask questions regarding the treatment plan. All questions were answered. Physical exam, labs, and imaging were discussed and reviewed in detail. As well as risks, benefits, and discussion of treatment choices. No major barriers to understanding were identified. The patient expressed understanding and agreement with the above treatment plan. The patient was made aware they should contact our office by phone for worsening of their current condition, the appearance of new symptoms, or with any questions or concerns. Compliance is encouraged with any medications and follow up testing that is ordered. It is a privilege to be allowed the opportunity to participate in? your urological care.? Again, if you have any questions or concerns If you have any questions or concerns please do not hesitate to contact me. The office is [phone]. This note is constructed using voice recognition software. While every effort has been made to ensure accuracy printing machine operator errors may have been included. Yours sincerely, VLAD Morales Coding Level of Care Code New Pt Level 3 (64935) Diagnoses Microhematuria R31.29 Gross hematuria R31.0
== END 2024-02-21 14:59 | disposition home or self-care (01) ==
PROVIDERS: PCP Nurse Practitioner Family; Visit Provider Nurse Practitioner Family
DX: R31.29 Other microscopic hematuria (principal); R31.0 Gross hematuria; Z13.9 Encounter for screening, unspecified
CPT/HCPCS: 99203

== ENCOUNTER 2024-04-03 08:54 | Outpatient (AMB) | payer BC, SELFPAY ==
[2024-04-03 09:17] VITALS: BP 128/68; PULSE 60; O2SAT 98; BMI 24.8
--- NOTE | 2024-04-03 09:17 | A.OFFVIS_ITS ---
Vital Signs 04/03/24 09:17 Height 5 ft 9 in Weight 167 lb 15.876 oz BMI 24.8 BP 128/68 Blood Pressure Location Rt brachial Position Sitting Pulse 60 Pulse Source Pulse Oximeter Pulse Oximetry (%) 98 Oxygen Delivery Method Room Air Intake Visit Reasons: Colonoscopy screening Intake Note: Relevant Flags or Indicators ? Requires Dinkey Engine Operator? Sophia He presents in office today for a scheduled colo scrn Initial/Routine Relevant GI Sx as reported per pt? Acid reflux, bloating. ? Hx of any recent surgeries? None Dinkey Engine Operator Required: No Accompanied by: Spouse Allergies No Known Allergies Allergy (Verified 04/05/24 09:29) HPI HPI Colonoscopy screening : Details: 54 year old? male with past medical history of thyroid nodule, microhematuria is here today for pre colonoscopy screening.? Patient was sent to us by his PCP.? T his is his first colonoscopy screening.? Patient denies any gastrointestinal symptoms in the past or at present.? However patient does admit to have occasional acid reflux depending on what he eats and abdominal bloating. Patient reports that his brother was diagnosed with colorectal cancer at age 65.? Denies history of difficulty with sedation or anesthesia in the past.? Negative for history of sleep apnea.? Denies any history of cardiac, renal, pulmonary, or hepatic disease.?? No history of infectious? diseases like hepatitis A, B, C, HIV or tuberculosis.? Patient is not on any anticoagulation therapy [facility] Surgical History No pertinent past surgical history Family History Mother No problems noted. Father Diabetes High blood pressure Social History Housing: House Alcohol intake: current Alcohol intake frequency: a few times a month Patient Tobacco Use Status: Never used Tobacco e-Cigarette/Vaping Use: Never Used Second Hand Smoke Exposure: No service: No Current occupational status: employed Current occupation: [employer] Current occupational exposures/hazards: No Cognitive needs: No Hearing needs: No Vision needs: Yes Review of Systems Const Denies weight gain and Denies weight loss ENT Reports no additional complaints, Denies dysphagia and Denies odynophagia Card Reports no additional complaints Resp Reports no additional complaints GI Denies abdominal pain, Denies belching, Denies melena, Reports bloating (Occasional), Denies change in bowel habits, Denies dysphagia, Denies excessive flatus, Denies dyspepsia, Reports heartburn (Occasional depending on what he eats), Denies diarrhea, Denies loose stools, Denies nausea, Denies odynophagia and Denies vomiting Reports no additional complaints Musc Reports no additional complaints Neuro Reports no additional complaints Psych Reports no additional complaints Endo Reports no additional complaints Physical Exam Vital Signs: Last Vital Signs Pulse 60 04/03/24 09:17 BP 128/68 04/03/24 09:17 Pulse Ox 98 04/03/24 09:17 Oxygen Delivery Method Room Air 04/03/24 09:17 BMI result Body Mass Index 24.8 Const General: healthy appearing, no acute distress and well developed Nutritional Appearance: well nourished Orientation/consciousness: patient oriented x3 Resp Effort & Inspection: normal respiratory effort, able to speak in complete sentences, no tracheal deviation and symmetric chest movement Auscultation: clear to auscultation bilaterally Cardio Rate: regular rate GI Inspection: Yes normal to inspection and No distended Palpation (GI): Soft to palpation, not firm, nontender and No hepatosplenomegaly present Auscultation: normal bowel sounds General: Yes no CVA tenderness Back/Spine/Pelvis Back: no CVA tenderness Skin General skin exam: elasticity normal, turgor normal and dry skin Neuro General: patient oriented x3 Psych Appearance: grossly normal Mental Status: mental status grossly normal Assessment & Plan Assessment & Plan (1) Family hx of colon cancer: Code(s): Z80.0 - Family history of malignant neoplasm of digestive organs Category: Medical (2) Screening for colon cancer: Code(s): Z12.11 - Encounter for screening for malignant neoplasm of colon Category: Medical Plan Patient denies any GI, cardiac or respiratory symptoms.? However patient does admit that he will have occasional acid reflux depending on what he eats and bloating. Denies any issues with anesthesia in the past.? Denies any history of sleep apnea.? No history infectious diseases in the past or present.? Not on any anticoagulation therapy.? Patient's brother was diagnosed with colorectal cancer at the age of 65.? Patient denies melena, hematochezia, unintentional weight loss or ribbon like stools.? Discussed at length the pre-procedure,? prep, diet & medications as well as what to expect prior, during and after the procedure.?? Stressed the importance of good bowel prep.? Recommended the use of Vaseline or Calmoseptine OTC & baby wipes with bowel movements to promote comfort.? ?Patient verbalizes understanding and agrees to plan of care.? He was given the opportunity to ask questions and all questions answered.? We will see him after the procedure.? Medications: New bisacodyl (Dulcolax (bisacodyl)) take 4 tabs at noon the day before your colonoscopy 20 mg (4 x 5 mg) PO ONCE 4 tabs 0RF 1 day Z12.11 - Encounter for screening for malignant neoplasm of colon polyethylene glycol 3350 (Miralax) As directed by gastroenterology department at [facility] 238 grams PO ONCE 238 grams 0RF Z12.11 - Encounter for screening for malignant neoplasm of colon Coding Level of Care Code New Pt Level 3 (18302) Diagnoses Family hx of colon cancer Z80.0 Screening for colon cancer Z12.11 Time Spent (min) 40 Comment 30 minutes spent with patient and additional 10 minutes spent reviewing his records
== END 2024-04-03 10:04 | disposition home or self-care (01) ==
PROVIDERS: PCP Nurse Practitioner Family; Visit Provider Nurse Practitioner Family
DX: Z80.0 Family history of malignant neoplasm of digestive organs (principal); Z12.11 Encounter for screening for malignant neoplasm of colon
CPT/HCPCS: 99203

== ENCOUNTER → 2024-04-03 08:54 | Outpatient (BNVA) | payer BC, SELFPAY | PROVIDERS: PCP Nurse Practitioner Family; Visit Provider Nurse Practitioner Family ==

== ENCOUNTER 2024-04-05 09:03 | Outpatient (AMB) | payer BC, SELFPAY ==
--- NOTE | 2024-04-05 09:10 | MHC.OFFVIS ---
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 54-year-old with complaints of a few episodes of gross hematuria after drinking alcohol. He denies history of nicotine use. Review of chart CT urogram 02/09/24--urinary tract within normal limits. The patient had 2 urine cytology results reported on 01/03/2024 and [id number] for malignancy. Cystoscopy today. Cystoscopy findings: No suspicious bladder lesions. Discussed with the patient and his at this time workup shows no evidence of urinary tract tumors. I do want to continue to monitor him and he will come back in 6 months for a urine check. Review of labs: Creatinine slightly elevated referral to Nephrology to complete hematuria workup. 30 minutes spent in review of records pertaining to this visit and including [id number] discussion with the patient and documentation of this visit. 12/27/23 02/09/24 Creatinine (0.5-1.4?mg/dL) 1.12 1.14 Review of chart: 02/21/24--Neri is a pleasant 54-year-old male patient of Dr. Gonsalez who was accompanied by his significant other at today's office visit. He presents to the office today as a new patient for microscopic/gross hematuria. In discussion with the patient today he reports noting a few episodes of gross hematuria after consumption of hard alcohol. He reports having followed up with his PCP at which time a CT urogram was ordered for further assessment evaluation. These results remain pending. When asked he denies any previous history of nicotine dependence and or workplace chemical exposure. He currently denies any bothersome urinary issues. Previous urine cytology results reviewed with the patient today. 12/23 Negative for high-grade urothelial carcinoma. We discussed at length reasons for blood in the urine may include but are not limited to kidney stones, cancer in the urinary tract, BPH, kidney stone disease or inflammatory conditions of the urinary tract. I have discussed workup to include cystoscopy evaluation. He denies urinary urgency, urinary frequency, incontinence, nocturia, dysuria, foul smelling urine, changes to urinary stream, flank pain, fever, and or chills. He is happy with his current voiding parameters. In review of patients chart PSA 12/23 0.4. PFSH Surgical History No pertinent past surgical history Family History Mother No problems noted. Father Diabetes High blood pressure Social History Housing: House Alcohol intake: current Alcohol intake frequency: a few times a month Patient Tobacco Use Status: Never used Tobacco e-Cigarette/Vaping Use: Never Used Second Hand Smoke Exposure: No service: No Current occupational status: employed Current occupation: [employer] Current occupational exposures/hazards: No Cognitive needs: No Hearing needs: No Vision needs: Yes Review of Systems Const All systems reviewed & are unremarkable except as noted in HPI and below Reports no additional complaints Eyes Reports no additional complaints ENT Reports no additional complaints Card Reports no additional complaints Resp Reports no additional complaints GI Reports no additional complaints Reports as per HPI Musc Reports no additional complaints Skin/Breast Reports system reviewed and no additional complaints, except as documented Neuro Reports no additional complaints Psych Reports no additional complaints Endo Reports no additional complaints Jose Cruz/Lymph Reports no additional complaints Aller/Immun Reports no additional complaints Office Procedures Cystoscopy Consent Discussed risk and benefit or proposed procedure with the patient. Information consent for procedure given to the patient. Discussed technical aspects, risks, benefits and alternatives in full. Addressed all of the patient's questions and concerns regarding the procedure. The patient demonstrated knowledge and understanding. They wish to proceed with this procedure. Preparation The patient was prepped in the usual manner. A civil engineer land development was present and in the room. Genitalia was prepped with betadine solution in a sterile manner. Lidocaine Jelly 2% was placed into the urethra and 16Fr flexible Olympus cystoscope was inserted into the meatus after adequate lubrication. Procedure Time out per protocol performed. Bladder Inspection Bladder Inspection: The bladder was inspected in its entirety with utilization retroflexion displaying: Tumor(s): no suspicious bladder lesions visualized Trabeculation: NA Mucosal Erthema: NA Orifices: normal shape and position Urethra: normal Cystoscopy findings: prostatic urethra non obstructive, bulbous urethra WNL, no suspicious bladder lesions visualized [id number] DISPOSABLE SCOPE URO-G FLEXIBLE SCOPE Procedure code (CPT) selection complete Office Meds lidocaine HCl 2 % mucosal jelly in applicator Performing Provider: Lamine Boykin MD Performing Location: [facility] [facility] Administered by: Juliet Schreiber CMA on 04/05/24 10:01 Dose Route Admin Location Dispensed Lot Number Expiration Date NDC Student Affairs Dean 10 mL intra-urethral 10 mL naproxen 500 mg tablet Performing Provider: Lamine Boykin MD Performing Location: [facility] U[facility] Administered by: Juliet Schreiber CMA on 04/05/24 10:01 Dose Route Admin Location Dispensed Lot Number Expiration Date NDC Student Affairs Dean 500 mg PO 1 tab ciprofloxacin HCl 500 mg tablet Performing Provider: Lamine Boykin MD Performing Location: [facility] U[facility] Administered by: Juliet Schreiber CMA on 04/05/24 10:01 Dose Route Admin Location Dispensed Lot Number Expiration Date NDC Student Affairs Dean 500 mg PO 1 tab Results AMB Urinalysis, Automated UA Leukoctes 0 Sophia/uL Last Edit by Juliet Schreiber CMA on 04/05/24 10:05 UA Nitrite Negative Last Edit by Juliet Schreiber CMA on 04/05/24 10:05 UA Urobilinogen 0.2 mg/dL Last Edit by Juliet Schreiber CMA on 04/05/24 10:05 UA Protein 0 mg/dL Last Edit by Juliet Schreiber CMA on 04/05/24 10:05 UA pH 6.0 Last Edit by Juliet Schreiber CMA on 04/05/24 10:05 UA Blood 25 Josh/uL Last Edit by Juliet Schreiber CMA on 04/05/24 10:05 UA Specific [place] 1.015 Last Edit by Juliet Schreiber CMA on 04/05/24 10:05 UA Ketone Negative Last Edit by Juliet Schreiber CMA on 04/05/24 10:05 UA Bilirubin 0 mg/dL Last Edit by Juliet Schreiber CMA on 04/05/24 10:05 UA Glucose 0 mg/dL Last Edit by Juliet Schreiber CMA on 04/05/24 10:05 Results Reviewed Results Reviewed: Laboratory Last Values Urine pH (Auto) 6.0 04/05/24 09:34 Specific [place] (Auto) 1.015 04/05/24 09:34 Urine Protein (Auto) 0 mg/dL 04/05/24 09:34 Glucose (UA)(Auto) 0 mg/dL 04/05/24 09:34 Urine Ketones (Auto) Negative 04/05/24 09:34 Urine Blood (Auto) 25 Josh/uL 04/05/24 09:34 Urine Nitrite (Auto) Negative 04/05/24 09:34 Urine Bilirubin (Auto) 0 mg/dL 04/05/24 09:34 Urine Urobilinogen (Auto) 0.2 mg/dL 04/05/24 09:34 Leukocyte Esterase (Auto) 0 Sophia/uL 04/05/24 09:34 Date of Service: 02/09/24 CT UROGRAM - CT ABDOMEN AND PELVIS WITHOUT AND WITH CONTRAST CLINICAL INFORMATION: Microscopic hematuria COMPARISON: CT abdomen and pelvis 04/04/2008 TECHNIQUE: Multidetector volumetric imaging was performed through the abdomen prior to IV contrast. The abdomen and pelvis were then reexamined after the administration of 85 mL Omnipaque 350 intravenous contrast. Additional 2-D coronal and sagittal reformatted images and axial 3-D maximum intensity projection MIP images are generated on the CT workstation. This CT examination was performed using dose optimization techniques as appropriate, variously including the following: *Automated exposure control *Adjustment of mA and/or kV according to patient size (this includes techniques or standardized protocols for targeted exams where dose is matched to indication/reason for exam; i.e. extremities or head) *Use of iterative reconstruction technique DLP: 767 mGy-cm UROGRAPHIC FINDINGS: Noncontrast imaging through the kidneys ureters and bladder show no urinary tract calculi.After the injection of contrast, there was prompt excretion bilaterally with symmetric CT nephrograms.The right kidney measures 12.0 cm and the left kidney measures 11.7 cm in maximal length. There are bilateral extrarenal pelves. No hydronephrosis. No filling defects are seen in the collecting systems. No mucosal abnormalities are seen. There are no renal masses. There are single ureters present which follow a normal course to the bladder. Bladder appears unremarkable. Bilateral ureteral jets are seen. The prostate is minimally enlarged measuring 4.4 x 2.9 x 4.7 cm for a volume of 31 cc. Seminal vesicles appear normal. The bladder is only mildly distended and has a symmetrically thickened wall no filling defects are seen. The bladder is only partially filled with contrast and evaluation for bladder masses is suboptimal. NON-UROGRAPHIC FINDINGS: Lung Bases: There is right basilar atelectasis present with a tiny right pleural effusion. No left-sided effusion is seen. No suspicious lung masses Liver, Gallbladder and Biliary Tree: The liver is normal in size, shape, and attenuation. The superior aspect of the right lobe of the liver is not included on the exam. No focal hepatic lesion or biliary ductal dilatation is seen. The gallbladder is unremarkable with no evidence of radiopaque gallstones, gallbladder wall thickening, or obvious pericholecystic inflammatory changes. Pancreas: Unremarkable. Spleen: Unremarkable. Adrenal Glands: Unremarkable. Gastrointestinal Tract: The small and large bowel are unremarkable. The appendix is unremarkable. Abdominal Wall: No significant hernia is appreciated. Lymph Nodes: Normal. Vascular: Unremarkable. Pelvic Viscera: An abnormal pelvic mass is not seen. Osseous Structures: Mild degenerative changes are present in the spine A bone island is seen in the right iliac bone. IMPRESSION: 1. A cause for the patient's microscopic hematuria has not been found. 2. Incidental note made of a tiny right pleural effusion with right basilar atelectasis and mild degenerative changes in the spine. Urine Cytology--Collected: 02/21/24 Location: [facility] Received: 02/22/24 Diagnosis Urine: Negative for high-grade urothelial carcinoma. Comment: Examination of a monolayer preparation slide shows benign urothelial cells, few benign squamous cells, and occasional inflammatory cells and red blood cells. Clinical History Gross hematuria Material Received Urine Gross Description Received is 32 cc of cloudy yellow fluid from which a ThinPrep slide is prepared. Assessment & Plan Assessment & Plan (1) Hematuria: Code(s): R31.9 - Hematuria, unspecified Category: Medical Plan Referral to Nephrology. We will monitor. Follow-up in 6 months, check urinalysis. Orders: Orders AMB Urinalysis Automated Today Z13.9 - Encounter for screening, unspecified AMB Cystoscopy Today R31.0 - Gross hematuria Referrals Nephrology Referral R31.9 - Hematuria, unspecified Patient Instructions: The patient had an opportunity to ask questions regarding treatment plan. The patient expressed understanding and agreement with the above treatment plan. The patient is aware they should contact our office by phone for worsening of their current condition or the appearance of new symptoms. Compliance is encouraged with any medications and followup testing that is ordered. It is a privilege to be allowed the opportunity to participate in the urologic care of your patient. If you have any questions or concerns regarding treatment for the above conditions please do not hesitate to contact me. The office telephone contact is [phone]. This note is constructed in part using voice recognition software. While every effort has been made to ensure accuracy chassis mechanic errors may have been included. Yours sincerely, Lamine Boykin MD Coding Level of Care Code Est Pt Level 4 (20504) Diagnoses Hematuria R31.9 CPT Codes Cystoscopy - CPT: 59552-Njhadltttp ([id number])
== END 2024-04-05 10:39 | disposition home or self-care (01) ==
PROVIDERS: PCP Nurse Practitioner Family; Visit Provider Urology
DX: R31.0 Gross hematuria (principal); Z13.9 Encounter for screening, unspecified
CPT/HCPCS: 52000; 99214

== ENCOUNTER → 2024-04-05 09:03 | Outpatient (BNVA) | payer BC, SELFPAY | PROVIDERS: PCP Nurse Practitioner Family; Visit Provider Urology | DX: R31.0 Gross hematuria (principal) | CPT/HCPCS: 52000; 81003 ==

== ENCOUNTER 2024-04-20 15:52 | Outpatient (AMB) | payer BC, SELFPAY ==
--- NOTE | 2024-04-20 15:53 | HO.NEPHOV ---
Vital Signs 04/20/24 15:54 Height 5 ft 9 in Weight 170 lb 6 oz BMI 25.2 BP 110/70 Blood Pressure Location Lt brachial Position Sitting Pulse 83 Pulse Source Pulse Oximeter Pulse Oximetry (%) 94 Oxygen Delivery Method Room Air Intake Visit Reasons: INP: Hematuria-Conf Acid Conditioner Required: No Accompanied by: Spouse Allergies No Known Allergies Allergy (Verified 04/20/24 15:54) HPI Comments Details: I had the pleasure of seeing Neri who is a pleasant 54-year-old male patient of Dr. Gonsalez who history of hematuria. He was seen by Urology in the past. He presents to the office today as a new patient for microscopic/gross hematuria. He reports having a few episodes of gross hematuria. He had a CT urogram which was unyielding. Urine cytology has been negative. He had a cystoscopy which could not explain his hematuria.. He denies urinary urgency, urinary frequency, incontinence, nocturia, dysuria, foul smelling urine, changes to urinary stream, flank pain, fever, and or chills. His PSA has been normal. He has history of hearing issues. He also has family history of hearing issues. His recent serum creatinine has been 1.14. He never had protein in the urine. He denies using any drugs or taking excessive nonsteroidal anti-inflammatories. He does not have any weight loss, night sweats or any other active systemic complaints. [facility] Surgical History No pertinent past surgical history Family History Mother No problems noted. Father Diabetes High blood pressure Social History Housing: House Alcohol intake: current Alcohol intake frequency: a few times a month Patient Tobacco Use Status: Never used Tobacco e-Cigarette/Vaping Use: Never Used Second Hand Smoke Exposure: No service: No Current occupational status: employed Current occupation: [employer] Current occupational exposures/hazards: No Cognitive needs: No Hearing needs: No Vision needs: Yes Review of Systems Const All systems reviewed & are unremarkable except as noted in HPI and below Physical Exam Vital Signs: Last Vital Signs Pulse 83 04/20/24 15:54 BP 110/70 04/20/24 15:54 Pulse Ox 94 04/20/24 15:54 Oxygen Delivery Method Room Air 04/20/24 15:54 BMI result Body Mass Index 25.2 Const General: comfortable and no acute distress Orientation/consciousness: patient oriented x3 HEENT Head: Yes normocephalic Mouth: Normal oral and palatal mucosa present Eyes EOM: EOMs intact bilaterally Neck Neck: Yes supple Resp Auscultation: clear to auscultation bilaterally Cardio Jugular venous distension: no JVD Rate: regular rate Heart sounds: Murmur heart sound present GI Palpation (GI): Soft to palpation Auscultation: normal bowel sounds General: Yes no CVA tenderness Back/Spine/Pelvis Back: no CVA tenderness Skin General skin exam: no rashes or lesions noted Neuro General: patient oriented x3 and moves all extremities Extrem General: Yes no pedal edema Results Reviewed Nephrology Results: Hgb 15.8 g/dl (14.0-18.0) 12/27/23 WBC 4.9 X10*3/uL (4.8-10.8) 12/27/23 Plt Count 220 X10*3/uL (160-400) 12/27/23 Sodium 138 mmol/L (135-145) 02/09/24 Potassium 4.0 mmol/L (3.3-5.1) 02/09/24 Chloride 102 mmol/L (96-108) 02/09/24 Carbon Dioxide 29 mmol/L (22-29) 02/09/24 BUN 18 mg/dL (9-16) H 02/09/24 Creatinine 1.14 mg/dL (0.5-1.4) 02/09/24 Calcium 9.5 mg/dL (8.4-10.2) 02/09/24 Urine Protein Negative mg/dL (Neg-Trace) 12/31/23 Assessment & Plan Assessment & Plan (1) Microhematuria: Code(s): R31.29 - Other microscopic hematuria Category: Medical Plan Neri has been having microscopic hematuria. He has hearing loss. He is not known to have proteinuria or hypertension. His last serum creatinine was 1.14. He may need genetic studies to rule out [place] syndrome. Other differential diagnosis includes IgA nephropathy or thin basement membrane disease. I have ordered further workup. He maintains good hydration and avoid nonsteroidal anti-inflammatories. If his serum creatinine goes up or he develops any proteinuria, he may warrant a renal biopsy. I would not make any medication changes today but rather discussed the possible diagnosis. Answered all questions. Follow-up appointment given. Orders: Orders ANCA Vasculitides 3 Months R31. - Other microscopic hematuria UA and rflx microscopic 3 Months R31. - Other microscopic hematuria Protein Electrophoresis, Serum 3 Months R31. - Other microscopic hematuria Creatinine 3 Months R31. - Other microscopic hematuria Electrolytes 3 Months R31. - Other microscopic hematuria Anti Glomerular Basement Memb 3 Months R31.29 - Other microscopic hematuria Protein Creatinine Ratio, Ur 3 Months R31. - Other microscopic hematuria Blood Urea Nitrogen 3 Months R31.29 - Other microscopic hematuria Coding Level of Care Code New Pt Level 4 (42780) Diagnoses Microhematuria R305.30
[2024-04-20 15:54] VITALS: BP 110/70; PULSE 83; O2SAT 94; BMI 25.2
== END 2024-04-20 16:19 | disposition home or self-care (01) ==
PROVIDERS: PCP Nurse Practitioner Family; Visit Provider Internal Medicine Nephrology
DX: R31.29 Other microscopic hematuria (principal)
CPT/HCPCS: 99204

== ENCOUNTER 2024-06-21 09:45 | Outpatient (AMB) | payer BC, SELFPAY ==
[2024-06-21 10:05] VITALS: BP 124/80; PULSE 60; TEMP 36.7; O2SAT 99; BMI 25.4
--- NOTE | 2024-06-21 10:05 | A.OFFPC_ITS ---
Vital Signs 06/21/24 10:05 Height 5 ft 9 in Weight 172 lb BMI 25.4 BP 124/80 Blood Pressure Location Rt brachial Position Sitting Pulse 60 Pulse Source Pulse Oximeter Temp 98.0 F Temp Source Oral Pulse Oximetry (%) 99 Intake Visit Reasons: 6 month f/u Accompanied by: Self / Same As Patient Allergies No Known Allergies Allergy (Verified 06/21/24 10:06) Tobacco use date assessed: 06/21/24 Dental Screening Dental Screen Date: 06/21/24 Did you have a dental visit in the last 12 months?: Yes Did you have a dental problem in the last 6 months where you did not have access to dental care?: No Was dental information given to patient?: Patient has dentist HPI 6 month f/u HPI Details Chief Complaint The patient reports worsening left heel pain, particularly severe in the morning. History of Present Illness The patient is a 54-year-old male presenting with left heel pain. The pain is described as stabbing and exacerbates in the morning. An X-ray conducted in December 2023 showed moderate degenerative changes at the first metatarsophalangeal joint, a small plantar calcaneal spur, and mild posterior calcaneal spurring. Plantar fasciitis is considered a contributing factor to the patient's discomfort. Prior X-ray findings indicate a structural basis for the pain, aligned with the symptoms of both the degenerative joint disease and calcaneal spurs. The patient experiences discomfort upon dorsiflexion of the toes and palpation of the heel. Social History Health Maintenance Review of Systems - Musculoskeletal: Reports stabbing left heel pain. Physical Exam General: Cooperative, healthy appearing, comfortable, no acute distress and well developed Orientation: Patient oriented x3 Limitations: No limitations Head: Normal to inspection Ears: Hearing grossly normal bilaterally Nose: Normal external nose present Face and sinus: Normal facial exam Eyes: Appearance normal, both eyes and all related structures Neck: Normal visual inspection and Yes full ROM Respiratory: Normal respiratory effort and able to speak in complete sentences. Clear to auscultation bilaterally Cardiovascular: Regular rate and rhythm. Normal S1 and S2 GI: Normal to inspection. Soft to palpation and nontender Skin: No rashes or lesions noted Neuro: Patient oriented x3 Extremities: Discomfort noted with dorsiflexion of toes and palpation of heel Results - Imaging: X-ray from December 2023 showin g moderate degenerative changes at the first metatarsophalangeal joint, small plantar calcaneal spur, and mild posterior calcaneal spurring. Plan - Initiate physical therapy to address p lantar fasciitis and calcaneal spur symptoms. - Re-evaluation of symptoms and response to physical therapy for potential further interventions. Discussion Notes I discussed with the patient the possible diagnosis of plantar fasciitis compounded by calcaneal spur contributing to his heel pain. We reviewed the findings from the X-ray, which confirmed structural changes, providing a basis for the pain. I explained that starting physical therapy could help alleviate the discomfort by improving foot mechanics and reducing strain. I clarified the importance of adherence to the therapy for optimal results. Patient Instructions - Begin physical therapy as prescribed. - Monitor heel pain and note any changes or improvements. - Follow instructions provided by the ysical therapist diligently. - Contact the office if pain worsens or if new symptoms develop. [facility] Medical History Partial thickness tear of right rotator cuff Surgical History No pertinent past surgical history Family History Mother No problems noted. Father Diabetes High blood pressure Social History Housing: House Alcohol intake: current Alcohol intake frequency: a few times a month Patient Tobacco Use Status: Never used Tobacco e-Cigarette/Vaping Use: Never Used Second Hand Smoke Exposure: No service: No Current occupational status: employed Current occupation: [employer] Current occupational exposures/hazards: No Cognitive needs: No Hearing needs: No Vision needs: Yes Questionnaire PHQ-9 Over the last 2 weeks, how often have you been bothered by any of the following problems? 1. Little interest or pleasure in doing things: not at all 2. Feeling down, depressed, or hopeless: not at all 3. Trouble falling or staying asleep, or sleeping too much: not at all 4. Feeling tired or having little energy: not at all 5. Poor appetite or overeating: not at all 6. Feeling bad about yourself - or that you are a failure or have let yourself or your family down: not at all 7. Trouble concentrating on things, such as reading the newspaper or watching television: not at all 8. Moving or speaking so slowly that other people could have noticed. Or the opposite - being so fidgety or restless that you have been moving around a lot more than usual: not at all 9. Thoughts that you would be better off or of hurting yourself in some way: not at all Total score: 0 Depression Screening Interpretation: Negative Depression Screening Done: Yes 63424 - PHQ-9 Billing: Yes Source: Developed by Drs. Darrell England, Karissa Small, Jonathan Pinto and colleagues, with an educational sixto from [employer]. Thrive Questionnaire Date Thrive assessed: 06/21/24 I am a: Patient What is your living situation today?: I have a steady place to live Within the past 12 months, did the food you bought not last and you didn't have the money to get more?: Sometimes True Within the past 12 months, did you worry whether your food would run out before you got money to buy more?: Sometimes True Do you have trouble paying for medicines?: Yes Do you have trouble getting transportation to medical appointments?: No Do you have trouble paying your heating and electricity bill?: No Do you have trouble taking care of your child, family member or friend?: No THRIVE Score: 2 AUDIT C Alcohol Use Questionnaire (AUDIT-C) 1. How often do you have a drink containing alcohol?: 2-3 times a week 2. How many drinks containing alcohol do you have on a typical day when you are drinking?: 1 or 2 3. How often do you have six or more drinks on one occasion?: Less than monthly Total Score: 4 Score Reviewed/Action Taken: Yes ENRIQUE-7 AMB Questionnaire ENRIQUE-7 Date ENRIQUE - 7 assessed: 06/21/24 Feeling nervous, anxious, or on edge: 0 = Not at all Not being able to stop or control worryin = Not at all Worrying too much about different things: 0 = Not at all Trouble relaxin = Not at all Being so restless that it is hard to sit still: 0 = Not at all Becoming easily annoyed or irritable: 0 = Not at all Feeling afraid as if something awful might happen: 0 = Not at all Total ENRIQUE-7 score (0-4 normal; 5-9 mild; 10-14 moderate; 15-21 severe): 0 Source: Developed by Drs. Darrell England, Karissa Small, Jonathan Pinto and colleagues, with an educational sixto from [employer]. ENRIQUE-7 Assessment Billing ENRIQUE-7 Assessment Tool: ENRIQUE-7 Assessment 82436 Physical exam (Primary Care) Vital Signs: Last Vital Signs Temp 98.0 F 06/21/24 10:05 Pulse 60 06/21/24 10:05 BP 124/80 06/21/24 10:05 Pulse Ox 99 06/21/24 10:05 BMI result Body Mass Index 25.4 Tobacco/Smoking Status: Tobacco use Status Tobacco use date assessed 06/21/24 06/21/24 10:08 Patient Tobacco Use Status Never used Tobacco 06/21/24 10:06 e-Cigarette/Vaping Use Never Used 06/21/24 10:06 PHQ-9: PHQ-9 Score PHQ-9: Total score 0 06/21/24 10:11 Depression Screening Interpretation: Negative Thrive Assessment: Date of Thrive Assessment Date Thrive assessed 06/21/24 06/21/24 10:06 Coding Level of Care Code Est Pt Level 3 (55476) Diagnoses Pain of left heel M79.672 Additional Codes ENRIQUE-7 Assessment Billing - ENRIQUE-7 Assessment Tool: ENRIQUE-7 Assessment 90983 ([id number]) PHQ-9 - 04326 - PHQ-9 Billing: Yes ([id number]) Assessment & Plan Assessment & Plan (1) Pain of left heel: Code(s): M79.672 - Pain in left foot Category: Medical Plan . Orders: Orders PT Evaluation and Treatment Today M79.672 - Pain in left foot
== END 2024-06-21 10:30 | disposition home or self-care (01) ==
PROVIDERS: PCP Nurse Practitioner Family; Visit Provider Nurse Practitioner Family
DX: M79.672 Pain in left foot (principal)

== ENCOUNTER → 2024-06-21 09:45 | Outpatient (BNVA) | payer BC, SELFPAY | PROVIDERS: PCP Nurse Practitioner Family; Visit Provider Nurse Practitioner Family | DX: M79.672 Pain in left foot (principal) | CPT/HCPCS: 96127 ==

== ENCOUNTER 2024-07-19 10:46 | Outpatient (REF) | payer BC, SELFPAY ==
[2024-07-19 11:41] LABS: Appearance Urine Clear; Color Urine Yellow; Glucose Urine UA Negative (Negative); Leukocyte Esterase Urine Negative (Negative); Nitrite Urine Negative (Negative); Specific Gravity - Urine 1.015 (1.005-1.025); UMIC TRIGGER UA YES; Urine Blood Trace (Negative); Urine Ketones Negative (Negative); Urine Protein Negative (Neg-Trace)
[2024-07-19 11:44] LABS: Bacteria Urine None Seen (None Seen); Hyaline Casts Urine 0-2 /LPF (0-2); Squamous Epithelial Cell Urine 0-2 /HPF (0-2); WBC Urine 0-5 /HPF (0-5)
[2024-07-19 12:03] LABS: Anion Gap 11 (12-20); Blood Urea Nitrogen 15 mg/dL (9-16); Carbon Dioxide 26 mmol/L (22-29); Chloride 105 mmol/L (96-108); Estimated Glomerular Filt Rate > 60; Potassium 4.2 mmol/L (3.3-5.1); Sodium 138 mmol/L (135-145)
[2024-07-19 12:15] LABS: Creatinine Urine 83.16 mg/dL; Total Protein Urine Random < 7 mg/dL (<12)
[2024-07-20 22:22] LABS: Anti Glomerular Basement Memb <1.0 AI; Myeloperoxidase Antibody <1.0 AI; Proteinase 3 PR3 Antibodies <1.0 AI
[2024-07-24 22:18] LABS: Prot Elec - Albumin 4.6 g/dL (3.8-4.8); Prot Elec - Alpha1 0.2 g/dL (0.2-0.3); Prot Elec - Alpha2 0.5 g/dL (0.5-0.9); Prot Elec - Beta 1 0.5 g/dL (0.4-0.6); Prot Elec - Beta 2 0.5 g/dL (0.2-0.5); Prot Elec - Gamma 1.6 g/dL (0.8-1.7); Prot Elec - Total Protein 7.9 g/dL (6.1-8.1)
== END 2024-07-19 10:47 | disposition home or self-care (01) ==
LOC: HO.10HDL 10:46
PROVIDERS: Visit Provider Internal Medicine Nephrology
DX: R31.29 Other microscopic hematuria (principal)
CPT/HCPCS: 36415; 80051; 81001; 82565; 82570; 83520; 84156; 84165; 84520; 86021

== ENCOUNTER 2024-07-20 10:44 | Outpatient (AMB) | payer BC, SELFPAY ==
--- NOTE | 2024-07-20 10:52 | HO.NEPHOV ---
Vital Signs 07/20/24 10:53 Height 5 ft 9 in Weight 173 lb 6 oz BMI 25.6 BP 100/60 Blood Pressure Location Rt brachial Position Sitting Intake Visit Reasons: Microhematuria-Conf R Developer Required: No Accompanied by: Significant Other Allergies No Known Allergies Allergy (Verified 07/20/24 10:53) HPI Comments Details: Neri was seen in follow up for microscopic hematuria. He was seen by Urology in the past. He had a CT urogram which was unyielding. Urine cytology has been negative. He had a cystoscopy which could not explain his hematuria.. He denies urinary urgency, urinary frequency, incontinence, nocturia, dysuria, foul smelling urine, changes to urinary stream, flank pain, fever, and or chills. His PSA has been normal. He has history of hearing issues. He also has family history of hearing issues. His recent serum creatinine has been 0.95. He never had protein in the urine. He denies using any drugs or taking excessive nonsteroidal anti-inflammatories. He does not have any weight loss, night sweats or any other active systemic complaints. [facility] Medical History (Updated 06/21/24 @ 10:15 by Terrence Odonnell [facility]) Partial thickness tear of right rotator cuff Surgical History No pertinent past surgical history Family History Mother No problems noted. Father Diabetes High blood pressure Social History Housing: House Alcohol intake: current Alcohol intake frequency: a few times a month Patient Tobacco Use Status: Never used Tobacco e-Cigarette/Vaping Use: Never Used Second Hand Smoke Exposure: No service: No Current occupational status: employed Current occupation: [employer] Current occupational exposures/hazards: No Cognitive needs: No Hearing needs: No Vision needs: Yes Review of Systems Const All systems reviewed & are unremarkable except as noted in HPI and below Physical Exam Vital Signs: Last Vital Signs BP 100/60 07/20/24 10:53 BMI result Body Mass Index 25.6 Const General: comfortable and no acute distress Orientation/consciousness: patient oriented x3 HEENT Head: Yes normocephalic Mouth: Normal oral and palatal mucosa present Eyes EOM: EOMs intact bilaterally Neck Neck: Yes supple Resp Auscultation: clear to auscultation bilaterally Cardio Jugular venous distension: no JVD Rate: regular rate GI Palpation (GI): Soft to palpation Auscultation: normal bowel sounds General: Yes no CVA tenderness Back/Spine/Pelvis Back: no CVA tenderness Skin General skin exam: no rashes or lesions noted Neuro General: patient oriented x3 and moves all extremities Extrem General: Yes no pedal edema Results Reviewed Nephrology Results: Sodium 138 mmol/L (135-145) 07/19/24 Potassium 4.2 mmol/L (3.3-5.1) 07/19/24 Chloride 105 mmol/L (96-108) 07/19/24 Carbon Dioxide 26 mmol/L (22-29) 07/19/24 BUN 15 mg/dL (9-16) 07/19/24 Creatinine 0.95 mg/dL (0.5-1.4) 07/19/24 Calcium 9.5 mg/dL (8.4-10.2) 02/09/24 Urine Protein Negative mg/dL (Neg-Trace) 07/19/24 Urine Creatinine 83.16 mg/dL 07/19/24 Protein/Creatinin Ratio TNP 07/19/24 Assessment & Plan Assessment & Plan (1) Microhematuria: Code(s): R31.29 - Other microscopic hematuria Category: Medical Plan Neri has H/O microscopic hematuria. He has questionable hearing loss. He is not known to have proteinuria or hypertension. His last serum creatinine was 0.9. He may need genetic studies to rule out Alport syndrome. Other differential diagnosis includes thin basement membrane disease. He maintains good hydration and avoid nonsteroidal anti-inflammatories. If his serum creatinine goes up or he develops any proteinuria, he may warrant a renal biopsy. I would not make any medication changes today but rather discussed the possible diagnosis. Answered all questions. Follow-up appointment given. Orders: Orders Electrolytes 1 Year R31.29 - Other microscopic hematuria Creatinine 1 Year R31.29 - Other microscopic hematuria Blood Urea Nitrogen 1 Year R31.29 - Other microscopic hematuria UA and rflx microscopic 1 Year R31.29 - Other microscopic hematuria Protein Creatinine Ratio, Ur 1 Year R31.29 - Other microscopic hematuria Coding Level of Care Code Est Pt Level 4 (96826) Diagnoses Microhematuria R31.29
[2024-07-20 10:53] VITALS: BP 100/60; BMI 25.6
== END 2024-07-20 11:10 | disposition home or self-care (01) ==
LOC: HO.HKA 10:45
PROVIDERS: PCP Nurse Practitioner Family; Visit Provider Internal Medicine Nephrology
DX: R31.29 Other microscopic hematuria (principal)
CPT/HCPCS: 99214

== ENCOUNTER → 2024-07-20 10:44 | Outpatient (BNVA) | payer BC, SELFPAY | PROVIDERS: PCP Nurse Practitioner Family; Visit Provider Internal Medicine Nephrology ==

== ENCOUNTER 2024-10-08 08:26 | Outpatient (REF) | payer BC, SELFPAY ==
[2024-10-08 16:44] LABS: Urine Cytology See Pathology rpt
== END 2024-10-08 08:27 | disposition home or self-care (01) ==
LOC: HO.LAB 08:26
PROVIDERS: PCP Nurse Practitioner Family; Visit Provider Urology
DX: R31.9 Hematuria, unspecified (principal)
CPT/HCPCS: 81003; 88112

== ENCOUNTER 2024-10-08 08:26 | Outpatient (AMB) | payer BC, SELFPAY ==
--- NOTE | 2024-10-08 08:37 | A.OFFVIS_ITS ---
Intake Visit Reasons: 6m Follow up Intake Note: Patient is present for 6m follow up Urology Med:none Antibiotic Allergy:none Blood Thinner:none Postal Delivery Officer Required: No Accompanied by: Spouse Allergies No Known Allergies Allergy (Verified 10/08/24 08:38) Medication List - Last Reconciled 10/08/24 by Lamine Boykin MD acetaminophen ER 650 mg PO Q8H PRN HPI Comments Details: 10/08/2024 History of Present Illness - The patient is a 54-year-old male presenting for six-month follow-up for hematuria monitoring. - Currently, urinalysis shows microscopic hematuria. - The patient had previous episodes of gross hematuria leading to diagnostic investigations. - CT urogram on 02/09/24 was normal, and office cystoscopy on 04/05/24 was unremarkable. - The patient reports no interim gross hematuria episodes and no smoking history. - The patient was also referred to Nephrology and is receiving microscopic hematuria workup with them also. - Urinary symptoms, such as dysuria or nocturia, are absent. - He complains of shoulder pain which he will follow-up and discuss with PCP currently using Tylenol PRN Results - UA-Microscopic hematuria present (Blood 1+)--10/08/24) - Labs: - Urinalysis showing 1 plus blood (microscopic hematuria) - Tests and Diagnostics: - Previous CT urogram on 02/09/24: Normal - Previous office cystoscopy on 04/05/24: Within normal limits Discussion Notes During this visit, I discussed with the patient the findings of microscopic hematuria indicated by today's urinalysis. We reviewed previous diagnostic findings, including a normal CT urogram and office cystoscopy. The plan to continue monitoring was affirmed, and I advised scheduling an ultrasound of the kidneys and bladder within the next six weeks to ensure comprehensive evaluation. I suggested repeating the PSA screening, which resulted normal previously, in the next month or two. The patient was informed about follow-up results discussion in December. 04/05/24--here for cystoscopy. 54-year-old with complaints of a few episodes of gross hematuria after drinking alcohol. He denies history of nicotine use. Review of chart CT urogram 02/09/24--urinary tract within normal limits. The patient had 2 urine cytology results reported on 01/03/2024 and [id number]- for malignancy. Cystoscopy today. Cystoscopy findings: No suspicious bladder lesions. Discussed with the patient and his at this time workup shows no evidence of urinary tract tumors. I do want to continue to monitor him and he will come back in 6 months for a urine check. Review of labs: Creatinine slightly elevated referral to Nephrology to complete hematuria workup. 30 minutes spent in review of records pertaining to this visit and including [id number] discussion with the patient and documentation of this visit. 12/27/23 02/09/24 Creatinine (0.5-1.4?mg/dL) 1.12 1.14 02/21/24--Neri is a pleasant 54-year-old male patient of Dr. Gonsalez who was accompanied by his significant other at today's office visit. He presents to the office today as a new patient for microscopic/gross hematuria. In discussion with the patient today he reports noting a few episodes of gross hematuria after consumption of hard alcohol. He reports having followed up with his PCP at which time a CT urogram was ordered for further assessment evaluation. These results remain pending. When asked he denies any previous history of nicotine dependence and or workplace chemical exposure. He currently denies any bothersome urinary issues. Previous urine cytology results reviewed with the patient today. 12/23 Negative for high-grade urothelial carcinoma. We discussed at length reasons for blood in the urine may include but are not limited to kidney stones, cancer in the urinary tract, BPH, kidney stone disease or inflammatory conditions of the urinary tract. I have discussed workup to include cystoscopy evaluation. He denies urinary urgency, urinary frequency, incontinence, nocturia, dysuria, foul smelling urine, changes to urinary stream, flank pain, fever, and or chills. He is happy with his current voiding parameters. In review of patients chart PSA 12/23 0.4. PFSH Medical History Partial thickness tear of right rotator cuff Surgical History No pertinent past surgical history Family History Mother No problems noted. Father Diabetes High blood pressure Social History Housing: House Alcohol intake: current Alcohol intake frequency: a few times a month Patient Tobacco Use Status: Never used Tobacco e-Cigarette/Vaping Use: Never Used Second Hand Smoke Exposure: No service: No Current occupational status: employed Current occupation: [employer] [place] Current occupational exposures/hazards: No Cognitive needs: No Hearing needs: No Vision needs: Yes Review of Systems Const All systems reviewed & are unremarkable except as noted in HPI and below Reports no additional complaints Eyes Reports no additional complaints ENT Reports no additional complaints Card Reports no additional complaints Resp Reports no additional complaints GI Reports no additional complaints Reports as per HPI Musc Reports no additional complaints Skin/Breast Reports system reviewed and no additional complaints, except as documented Neuro Reports no additional complaints Psych Reports no additional complaints Endo Reports no additional complaints Jose Cruz/Lymph Reports no additional complaints Aller/Immun Reports no additional complaints Assessment & Plan Assessment & Plan (1) Screening for prostate cancer: Code(s): Z12.5 - Encounter for screening for malignant neoplasm of prostate Category: Medical (2) Hematuria: Code(s): R31.9 - Hematuria, unspecified Category: Medical Plan Plan - Schedule an ultrasound of the kidneys and bladder within the next six weeks. - Repeat the PSA test in one to two months. - Plan for a phone follow-up in December to go over results. - Watch for any changes in urine or new symptoms and report them right away. Orders: Orders PSA,Total (Free>4and<10) 2 Months Z12.5 - Encounter for screening for malignant neoplasm of prostate US retroperitoneal comp 6 Weeks R31.9 - Hematuria, unspecified Patient Instructions: The patient had an opportunity to ask questions regarding treatment plan. The patient expressed understanding and agreement with the above treatment plan. The patient is aware they should contact our office by phone for worsening of their current condition or the appearance of new symptoms. Compliance is encouraged with any medications and followup testing that is ordered. It is a privilege to be allowed the opportunity to participate in the urologic care of your patient. If you have any questions or concerns regarding treatment for the above conditions please do not hesitate to contact me. The office telephone contact is [phone]. This note is constructed in part using voice recognition software. While every effort has been made to ensure accuracy licensed massage practitioner errors may have been included. Yours sincerely, Lamine Boykin MD Scribe Plan - Not visible on output: Patient was informed and verbally consented to the use of an ambient scribe for clinic note documentation during this visit. Coding Level of Care Code Est Pt Level 4 (09248) Diagnoses Screening for prostate cancer Z12.5 Hematuria R31.9
== END 2024-10-08 09:28 | disposition home or self-care (01) ==
LOC: HO.HUSH 08:27
PROVIDERS: PCP Nurse Practitioner Family; Visit Provider Urology
DX: Z12.5 Encounter for screening for malignant neoplasm of prostate (principal); R31.9 Hematuria, unspecified
CPT/HCPCS: 99214

== ENCOUNTER 2024-11-16 12:29 | Outpatient (REF) | payer BC, SELFPAY ==
--- NOTE | ~2024-11-16 | US_ITS ---
CLINICAL HISTORY: R31.9 - Hematuria, unspecified US retroperitoneum Comparison: CT/MO/SR - CT ABDOMEN PELVIS UROGRAPHY WITHOUT THEN WITH IV CONTRAST - 02/09/24 16:25 EDT Findings: Right kidney normal size and echotexture, 11.8 cm length. No hydronephrosis, mass or calculus. Normal color flow. Left kidney normal size and echotexture, 11.9 cm in length. No hydronephrosis, mass or calculus. Normal color flow. Urinary bladder is unremarkable. Prevoid volume 256 mL. Postvoid volume 25 mL. Ureteral jets are visualized bilaterally Posterior inferior aspect of the prostate is not well seen due to rectal gas shadowing, the visualized portion measures 3.8 x 3.6 x 4.2 cm. Impression: No acute finding. No sonographic finding to account for hematuria. This document has been electronically signed by: Leanne Randhawa MD on 11/16/2024 14:21:59
--- OUTSIDE RECORDS SUMMARY | 2024-11-16 12:31 | XMS_ITS | Clinical Summary ---
Author Organization [facility] Address [address] [facility] [address] [place] [address] Phone Care Team Providers Care Export Agent Name Role Phone Pastor Mcclure MD Unavailable [phone] Pcp, Unknown Primary Care Provider Unavailabl e Allergies No known active allergies Medications No known medications Active Problems Problem Noted Date Diagnosed Date Depression 10/17/2018 Family history of prostate cancer 10/17/2018 Overview (10/18/2018): Both brothers Gastrointestinal symptoms 10/17/2018 Immunizations Immunization Administration Dates Next Due COVID-19 (Pre-02/21) [employer] Vaccine, mRNA, PF ,08/02/2020 Influenza Trivalent w/ Preservative IM 5 Td (adult),2 Lf Tetanus Toxoid, PF, Adsorbed 05/2008 Tdap 10/17/2018 Family History Medical History Relation Comments Cirrhosis Brother 1 Prostate cancer Brother 1 Prostate cancer Brother 2 hepatitis c Brother 2 From IVDU No Known Problems Daughter Diabetes Father Hyperlipidemia Father Hypertension Father Transient ischemic attack Father Age 70 s Lung cancer Mother Smoker HIV Sister of AIDS No Known Problems Son Breast cancer Neg Hx Colon cancer Neg Hx Relation Status Comments Brother 1 (Age 55) Brother 2 Alive Daughter Alive Father Alive Maternal Grandfather Maternal Grandmother Mother (Age 63) Paternal Grandfather Paternal Grandmother Sister (Age 46) Son Alive Social History Tobacco Use Types Packs/Day Years Used Date Smoking Tobacco: Never Smokeless Tobacco: Never Alcohol Use Standard Drinks/Week Comments Yes 4 (1 standard drink = 0.6 oz pur e alcohol) Education Answer Date Recorded Are you interested in more education? Not on germaine e 08/27/2022 Are you concerned about learning? Not on file 08/27/2022 No 08/27/2022 No 08/27/2022 Digital Access Answer Date Recorded No 09/27/2022 No 09/27/2022 Reliable internet access at home? Not on file 09/27/2022 Device with a working camera? 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 Not on file Not on file Not o n file Last Filed Vital Signs Vital Sign Reading Time Taken Comments Blood Pressure 116/70 10/25/2018 10:02 AM EDT Pulse 69 10/25/2018 10:02 AM EDT Temperature 36.6 C (97.9 F) 10/25/2018 10:02 AM EDT Respiratory Rate - - Oxygen Saturation 97% 10/25/2018 10:02 AM EDT Inhaled Oxygen Concentration - - Weight 75.3 kg (166 lb) 10/23/2018 9:10 AM EDT Height 175.3 cm (5' 9 ) 10/23/2018 9:10 AM EDT Body Mass Index 24.51 10/23/2018 9:10 AM EDT Plan of Treatment Health Maintenance Due Date Last Done Comments HEPATITIS C SCREENING 01/21/1986 HIV ONE-TIME SCREENING (18-6 5 YEARS) 01/21/1986 COLOGUARD 01/21/2013 COLONOSCOPY 01/21/2013 COLORECTAL CANCER SCREENING 01/21/2013 FIT TEST 01/21/2013 FOBT 01/21/2013 SIGMOIDOSCOPY 01/21/2013 VIRTUAL COLONOSCOPY 01/21/2013 PNEUMOCOCCAL VACCINES (50+ years) (1 of 1 - PCV) 01/21/2018 ZOSTER VACCINES (1 of 2) 01/21/2018 DEPRESSION SCREENING 10/18/2019 10/17/2018 LIPID PANEL 12/06/2019 12/05/2014, 12/05/2014, 12/05/2014 COVID-19 VACCINE (3 - 2023-2 5 season) 2024 08/23/2020, 08/02/2020 Adult Td,Tdap Booster 10/17/2028 10/17/2018 , 10/30/2008 SMOKING STATUS SCREENING (On ce After 26 Yrs) Completed 10/25/2018 HEPATITIS A VACCINES Aged Out No long er eligible based on patient's age to complete this topic HIB VACCINES Aged Out No longer eligi ble based on patient's age to complete this topic MENINGOCOCCAL VACCINES (ACWY) Aged Out No longer eligible based on patient's age to complete this topic MENINGOCOCCAL VACCINES (B) Aged Out N o longer eligible based on patient's age to complete this topic Medical Devices Not on file Procedures Procedure Name Priority Date/Time Associated Diagnosis Comments OUTSIDE HDL Routine 12/05/2014 from Last 3 Months or Most Recently Relevant to Health Maintenance Results * Outside HDL (12/05/2014) HDL - External 43 40 - 80 mg/dL [facility] Provider LAB BLOOD ORDERABLES Lore l Result from Last 3 Months or Most Recently Relevant to Health Maintenance [facility] [address] [facility] PPO BLUE CROSS OUT OF STATE PPO BLUE CROSS OUT OF STATE PPO BLUE CROSS OUT OF STATE PPO BLUE CROSS OUT OF STATE PPO BLUE CROSS OUT OF STATE PPO BLUE CROSS OUT OF STATE PPO [facility] OUT [facility] PPO Care Teams Export Agent Relationship Specialty Start Date End Date Pcp, Unknown PCP - General 12/24/21 Pastor Mcclure MD [address] [place] [address], [address] [place], [place] [address] [email or web address] Family Medicine 07/14/18 Additional Source Comments The information contained in this document represents components of the legal health record. It is not the complete legal health record.[facility]
== END 2024-11-16 12:30 | disposition home or self-care (01) ==
LOC: HO.US 12:29
PROVIDERS: PCP Nurse Practitioner Family; Visit Provider Urology
DX: R31.9 Hematuria, unspecified (principal)
CPT/HCPCS: 76770

== ENCOUNTER → 2024-11-16 12:30 | Outpatient (BNV) | payer BC, SELFPAY | PROVIDERS: PCP Nurse Practitioner Family; Visit Provider Radiology Diagnostic Radiology | DX: R31.9 Hematuria, unspecified (principal) | CPT/HCPCS: 76770 ==

== ENCOUNTER 2024-11-28 15:25 | Outpatient (AMB) | payer BC, SELFPAY ==
--- NOTE | 2024-11-28 15:27 | MHC.PC.OV ---
Vital Signs 11/28/24 15:28 Height 5 ft 9 in Weight 172 lb BMI 25.4 BP 120/80 Blood Pressure Location Lt brachial Position Sitting Pulse 78 Pulse Source Pulse Oximeter Pulse Oximetry (%) 97 Oxygen Delivery Method Room Air Intake Visit Reasons: PE per JG - see comments Technical Sales Representative Required: No Accompanied by: Self / Same As Patient Allergies No Known Allergies Allergy (Verified 11/28/24 16:09) Medication List - Last Reconciled 11/28/24 by VLAD Lance acetaminophen ER 650 mg PO Q8H PRN Tobacco use date assessed: 11/28/24 Dental Screening Dental Screen Date: 11/28/24 Did you have a dental visit in the last 12 months?: Yes Did you have a dental problem in the last 6 months where you did not have access to dental care?: No Was dental information given to patient?: Patient has dentist HPI PE per JG - see comments HPI Details History of Present Illness The patient is a 54-year-old male presenting for a physical examination and follow-up on existing health concerns. Approximately five months ago, the patient fell off a large stool, landing on his left shoulder, which resulted in severe pain primarily in the posterior aspect extending to the trapezius region. The pain has persisted, and he describes it as severe, impacting his ability to work with his hands and upper extremities due to limited mobility of the left upper extremity. The patient has a positive Anu's test while Goodman and Neer's tests were negative. He is under regular care by a urologist, catapult and arresting gear officer, and animal control specialist. A referral for a colonoscopy was previously made due to a family history of colon cancer, as his brother was diagnosed at age 65, but it appears the patient has not yet been seen for this screening. 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 Review of Systems - Cardiovascular: Denies chest pain - Respiratory: Denies dyspnea - Gastrointestinal: Denies abdominal pain, blood in stool, constipation, diarrhea - Psychiatric: Denies suicidal ideation, denies homicidal ideation Physical Exam General: Cooperative, healthy appearing, comfortable, no acute distress and well developed Orientation: Patient oriented x3 Limitations: Limited mobility of left upper extremity Head: Normal to inspection Ears: Hearing grossly normal bilaterally Nose: Normal external nose present Face and sinus: Normal facial exam Eyes: Appearance normal, both eyes and all related structures Neck: Normal visual inspection and Yes full ROM Respiratory: Normal respiratory effort and able to speak in complete sentences. Clear to auscultation bilaterally Cardiovascular: Regular rate and rhythm. Normal S1 and S2 GI: Normal to inspection. Soft to palpation and nontender : Testicles without masses/lesions and no hernias appreciated Skin: No rashes or lesions noted Neuro: Patient oriented x3 Extremities: Limited mobility of left upper extremity, Positive Anu's test, Negative Goodman test, Negative neers test Results Plan The patient will be referred to an animal control specialist for further evaluation of the left shoulder pain and limited mobility, given the positive Jobes test and ongoing severe pain. An x-ray of the left shoulder will be obtained to assess for any structural abnormalities or dislocation that may have occurred during the fall. Will reach out to gastro to ensure the patient receives appropriate screening due to his family history of colon cancer. Discussion Notes I discussed with the patient the need for an orthopedic consultation to address his shoulder pain and limited mobility, emphasizing the importance of evaluating the positive Jobes test findings. We also reviewed the necessity of obtaining an x-ray to further investigate any potential dislocation or structural issues. Additionally, I explained the importance of completing the colonoscopy screening due to his brother's history of colon cancer, and I will ensure the referral is resubmitted. Patient Instructions - Follow up with the animal control specialist as soon as possible for shoulder evaluation. - Attend the x-ray appointment for the left shoulder to check for any injuries. - Ensure to complete the colonoscopy screening. [facility] Medical History Partial thickness tear of right rotator cuff Surgical History No pertinent past surgical history Family History Mother No problems noted. Father Diabetes High blood pressure Social History Housing: House Alcohol intake: current Alcohol intake frequency: a few times a month Patient Tobacco Use Status: Never used Tobacco e-Cigarette/Vaping Use: Never Used Second Hand Smoke Exposure: No service: No Current occupational status: employed Current occupation: [employer] Current occupational exposures/hazards: No Cognitive needs: No Hearing needs: No Vision needs: Yes Questionnaire Thrive Questionnaire Date Thrive assessed: 06/21/24 I am a: Patient What is your living situation today?: I have a steady place to live Within the past 12 months, did the food you bought not last and you didn't have the money to get more?: Sometimes True Within the past 12 months, did you worry whether your food would run out before you got money to buy more?: Sometimes True Do you have trouble paying for medicines?: Yes Do you have trouble getting transportation to medical appointments?: No Do you have trouble paying your heating and electricity bill?: No Do you have trouble taking care of your child, family member or friend?: No THRIVE Score: 2 ENRIQUE-7 AMB Questionnaire ENRIQUE-7 Date ENRIQUE - 7 assessed: 06/21/24 Source: Developed by Drs. Darrell England, Karissa Small, Jonathan Pinto and colleagues, with an educational sixto from [employer]. Physical exam (Primary Care) Vital Signs: Last Vital Signs Pulse 78 11/28/24 15:28 BP 120/80 11/28/24 15:28 Pulse Ox 97 11/28/24 15:28 Oxygen Delivery Method Room Air 11/28/24 15:28 BMI result Body Mass Index 25.4 Tobacco/Smoking Status: Tobacco use Status Tobacco use date assessed 11/28/24 11/28/24 15:31 Patient Tobacco Use Status Never used Tobacco 11/28/24 15:31 e-Cigarette/Vaping Use Never Used 11/28/24 15:31 Thrive Assessment: Date of Thrive Assessment Date Thrive assessed 06/21/24 11/28/24 15:31 Coding Level of Care Code Est Pt Level 3 (98830) Est Pt Prev Care 40-64y(58650) Diagnoses Physical exam Z00.00 Encounter for routine adult physical exam with abnormal findings Z00.01 Left shoulder pain M25.512 Assessment & Plan Assessment & Plan (1) Physical exam: Code(s): Z00.00 - Encounter for general adult medical examination without abnormal findings Category: Medical (2) Encounter for routine adult physical exam with abnormal findings: Code(s): Z00.01 - Encounter for general adult medical examination with abnormal findings Category: Medical (3) Left shoulder pain: Code(s): M25.512 - Pain in left shoulder Category: Medical Plan . Orders: Orders Comprehensive [place]. Panel Fast Today Z00. - Encounter for general adult medical examination with abnormal findings TSH reflex Free T4 Today Z00. - Encounter for general adult medical examination with abnormal findings Complete Blood Count Auto Diff Today Z00. - Encounter for general adult medical examination with abnormal findings UA CC w/rflx Micro + Cult Today Z00. - Encounter for general adult medical examination with abnormal findings Lipid Panel Today Z00.01 - Encounter for general adult medical examination with abnormal findings XR shoulder LT min 2V Today M25.512 - Pain in left shoulder Referrals Orthopedics Referral M25.512 - Pain in left shoulder
[2024-11-28 15:28] VITALS: BP 120/80; PULSE 78; O2SAT 97; BMI 25.4
--- OUTSIDE RECORDS SUMMARY | 2024-11-28 16:05 | XMS_ITS | Clinical Summary ---
Author Organization [facility] Address [address] [facility] [address] [place] [address] Phone Care Team Providers Care Agronomist Name Role Phone Pastor Mcclure MD Unavailable [phone] Pcp, Unknown Primary Care Provider Unavailabl e Allergies No known active allergies Medications No known medications Active Problems Problem Noted Date Diagnosed Date Depression 10/17/2018 Family history of prostate cancer 10/17/2018 Overview (10/18/2018): Both brothers Gastrointestinal symptoms 10/17/2018 Immunizations Immunization Administration Dates Next Due COVID-19 (Pre-02/21) [employer] Vaccine, mRNA, PF ,08/02/2020 Influenza Trivalent w/ [...] 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 Not on file Not [...] - External 43 40 - 80 mg/dL [facility] Provider LAB BLOOD ORDERABLES Olre l Result from Last 3 Months or Most Recently Relevant to Health Maintenance [facility] P[facility] BLUE CROSS OUT OF STATE PPO BLUE CROSS OUT OF STATE PPO BLUE CROSS OUT OF STATE PPO BLUE CROSS OUT OF STATE PPO BLUE CROSS OUT OF STATE PPO BLUE CROSS OUT OF STATE PPO [facility] OUT [facility] PPO Care Teams Agronomist Relationship Specialty Start Date End Date Pcp, Unknown PCP - General 12/24/21 Pastor Mcclure MD [address] [place] [address], [address] [place], [place] [id number] [email or web address] Family Medicine 07/14/18 Additional Source Comments The information contained in this document represents components of the legal health record. It is not the complete legal health record.[facility]
== END 2024-11-28 16:26 | disposition home or self-care (01) ==
LOC: HO.HMCC 15:26
PROVIDERS: PCP Nurse Practitioner Family; Visit Provider Nurse Practitioner Family
DX: Z00.01 Encounter for general adult medical examination with abnormal findings (principal); M25.512 Pain in left shoulder

== ENCOUNTER 2025-01-23 13:08 | Outpatient (REF) | payer BC, SELFPAY ==
--- NOTE | ~2025-01-23 | XR_ITS ---
EXAMINATION: XR SHOULDER, LEFT CLINICAL INFORMATION: M25.512 - Pain in left shoulder COMPARISON: 06/03/2020. TECHNIQUE: Three views of the left shoulder. FINDINGS: Normal bone mineralization. No fracture, dislocation, or suspicious bone lesion. Normal alignment. The glenohumeral joint demonstrates minimal osteoarthrosis. The AC joint demonstrates moderate both superior and undersurface spurring. There is a type II acromion. No undersurface spurring. The subacromial space is preserved. Remainder of the soft tissue and bony structures appear normal. XR/XR shoulder LT min 2V IMPRESSION: 1. No acute bony abnormalities. 2. Very mild osteoarthrosis of the glenohumeral joint. 3. Moderate spurring of the AC joint. Electronically signed by: Case Mo MD 01/23/2025 01:27 PM EDT
--- OUTSIDE RECORDS SUMMARY | 2025-01-23 15:31 | XMS_ITS | Clinical Summary ---
Author Organization [facility] Address [address] [facility] [address] [place] [address] Phone Care Team Providers Care Actor Understudy Name Role Phone Pastor Mcclure MD Unavailable [phone] Pcp, Unknown Primary Care Provider Unavailabl e Allergies No known active allergies Medications No known medications Active Problems Problem Noted Date Diagnosed Date Depression 10/17/2018 Family history of prostate cancer 10/17/2018 Overview (10/18/2018): Both brothers Gastrointestinal symptoms 10/17/2018 Immunizations Immunization Administration Dates Next Due COVID-19 (Pre-02/21) Pfizer Vaccine, mRNA, PF ,08/02/2020 INFLUENZA, SPLIT VIRUS, TRIVALENT W/ PRESERVATIV E IM 02/12/2015 Td (adult),2 Lf Tetanus Toxoid, PF, Adsorbed [...] 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 Not on file [...] 10/17/2018 LIPID PANEL 12/06/2019 12/05/2014, 12/05/2014, 12/05/2014 INFLUENZA VACCINE (#1) 2024 02/12/2015 COVID-19 VACCINE (3 - 2024-2 6 season) 2024 08/23/2020, 08/02/2020 Adult Td,Tdap Booster [...] - External 43 40 - 80 mg/dL [facility] Provider LAB BLOOD ORDERABLES Lore l Result from Last 3 Months or Most Recently Relevant to Health Maintenance Insurance [facility] PPO [facility] PPO BLUE CROSS OUT OF STATE PPO BLUE CROSS OUT OF STATE PPO BLUE CROSS OUT OF STATE PPO BLUE CROSS OUT OF STATE PPO BLUE CROSS OUT OF STATE PPO BLUE CROSS OUT OF STATE PPO [facility] PPO Care Teams Actor Understudy Relationship Specialty Start Date End Date Pcp, Unknown PCP - General 12/24/21 Pastor Mcclure MD [address] [place] [address], [address] [place] [address] [email or web address] Family Medicine 07/14/18 Additional Source Comments The information contained in this document represents components of the legal health record. It is not the complete legal health record.[facility]
[2025-01-23 16:04] LABS: MANUAL DIFF FLAG NO
[2025-01-23 16:13] LABS: Appearance Urine Clear; Glucose Urine UA Negative (Negative); PH 7.0 (5.0-9.0); Specific Gravity - Urine 1.020 (1.005-1.025); UMIC TRIGGER UACC YES
[2025-01-23 16:22] LABS: Hematocrit 45.5 % (42.0-52.0); Hemoglobin 15.4 g/dl (14.0-18.0); Imm Gran Abs Auto 0.04 X10*3/uL (0.00-0.03); Imm Gran Pct Auto 0.6 % (0.0-0.4); Lymphocytes Absolute Auto 2.3 X10*3/uL (1.2-4.9); Mean Corpuscular HGB Conc 33.8 g/dl (31.0-36.0); Mean Corpuscular Hemoglobin 31.0 pg (27.0-33.0); Mean Corpuscular Volume 91.5 fL (80.0-98.0); NRBC Abs Auto 0.000 X10*3/uL (0.0-0.012); NRBC Pct Auto 0.0 /100WBC (0.0-0.2); Platelet Count 336 X10*3/uL (160-400); Red Blood Count 4.97 X10*6/uL (4.60-5.80); White Blood Count 6.5 X10*3/uL (4.8-10.8)
[2025-01-23 17:03] LABS: Alanine Aminotransferase 55 U/L (0-40); Albumin Level 4.7 g/dL (3.5-5.0); Alkaline Phosphatase 48 U/L (39-117); Anion Gap 12 (12-20); Aspartate Amino Transferase 32 U/L (5-37); Blood Urea Nitrogen 14 mg/dL (9-16); Calcium 9.6 mg/dL (8.4-10.2); Carbon Dioxide 28 mmol/L (22-29); Chloride 106 mmol/L (96-108); Cholesterol 182 mg/dL (<200); Estimated Glomerular Filt Rate > 60; HDL Cholesterol 39 mg/dL (>40); Potassium 4.0 mmol/L (3.3-5.1); Sodium 142 mmol/L (135-145); Total Protein 8.0 g/dL (6.5-8.0); Triglycerides 182 mg/dL (<150)
[2025-01-23 17:08] LABS: PSA,Total (Free>4and<10) 0.51 ng/mL (0.00-4.00)
== END 2025-01-23 13:09 | disposition home or self-care (01) ==
LOC: HO.HMGCX 13:08
PROVIDERS: Urology; PCP Nurse Practitioner Family; Visit Provider Nurse Practitioner Family
DX: Z00.01 Encounter for general adult medical examination with abnormal findings (principal); Z12.5 Encounter for screening for malignant neoplasm of prostate; Z13.6 Encounter for screening for cardiovascular disorders; Z13.29 Encounter for screening for other suspected endocrine disorder; M25.512 Pain in left shoulder
CPT/HCPCS: 36415; 73030; 80053; 80061; 81001; 84153; 84443; 85025

== ENCOUNTER → 2025-01-23 13:12 | Outpatient (BNV) | payer BC, SELFPAY | PROVIDERS: PCP Nurse Practitioner Family; Visit Provider Radiology Diagnostic Radiology | DX: M25.712 Osteophyte, left shoulder (principal) | CPT/HCPCS: 73030 ==

== ENCOUNTER 2025-01-28 14:22 | Outpatient (AMB) | payer BC, SELFPAY ==
[2025-01-28 14:48] VITALS: BMI 23.9
--- NOTE | 2025-01-28 14:48 | MHC.OFFVIS ---
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 On 11/28/24, patient reported to PCP he had falling of a large stool 5 months prior. Patient landed on his left shoulder resulting in severe pain primarily in the posterior aspect, extending to the trapezius region. Patient complains of pain at the base of the left shoulder with associated numbness and tingling of the left hand. Patient states he did not have the numbness or the tingling prior to the injury. He also feels the pain radiates to the left side of the neck. He takes Tylenol and Advil with some relief however he wakes up in pain through the night. Patient denies previous injuries or surgeries to the left upper extrmity. Allergies No Known Allergies Allergy (Verified 01/28/25 14:49) [facility] Medical History Partial thickness tear of right rotator cuff Surgical History No pertinent past surgical history Family History Mother No problems noted. 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, [employer], [employer] Current occupational exposures/hazards: No Cognitive needs: No Hearing needs: No Vision needs: Yes Review of Systems Const All systems reviewed & are unremarkable except as noted in HPI and below Physical Exam Vital Signs: BMI result Body Mass Index 23.9 Extrem Other: Patient's left shoulder normal to inspection No erythema, ecchymosis, edema noted No lacerations, abrasions, open areas No evidence of infection Patient reports no tenderness to palpation of the left shoulder Patient is able to forward flex to approximately 100 degrees with the left shoulder without difficulty Patient is able to externally rotate to approximately 50 degrees of the left shoulder without difficulty Distal sensation intact Capillary refill brisk Results Reviewed Results Reviewed: X-rays obtained in the office today and independently reviewed by me, Justino Seaman PA-C, demonstrate degenerative changes consistent with osteoarthritis of the left AC joint as well as the left glenohumeral joint. Assessment & Plan Assessment & Plan (1) Arthritis of left acromioclavicular joint: Code(s): M19.012 - Primary osteoarthritis, left shoulder Category: Medical (2) Arthritis of left glenohumeral joint: Code(s): M19.012 - Primary osteoarthritis, left shoulder Category: Medical Plan 1. Left AC joint arthritis 2. Left glenohumeral joint arthritis Patient is educated about this condition Patient is educated about the treatment options available Patient would like to proceed with steroid injection The risks and benefits of a steroid injection including but not limited to risk of damage to blood vessels, nerves, tendons, infection, skin bleaching, failure to improve symptoms, increased pain, and possible need for further injections or other intervention were discussed with the patient and the patient wishes to proceed with the steroid injection. Once consent was obtained, I aseptically prepped the area over the posterior soft space just below the acromion of the left shoulder. I then injected the area over the lateral epicondyle with a combination of 80 mg of dexamethasone and 8 mL of 1% lidocaine. The patient tolerated the procedure well with no complications. If the patient continues to experience symptoms over the following few weeks or months, they can make an appointment to return and discuss alternative treatment measures, such as physical therapy. Follow-up prn Coding Level of Care Code New Pt Level 3 (08876) Diagnoses Arthritis of left acromioclavicular joint M19.012 Arthritis of left glenohumeral joint M19.012
--- OUTSIDE RECORDS SUMMARY | 2025-01-28 16:13 | XMS_ITS | Clinical Summary ---
Author Organization 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 Not on file Not [...] - External 43 40 - 80 mg/dL [facility] Provider LAB BLOOD ORDERABLES Lore l Result from Last 3 Months or Most Recently Relevant to Health Maintenance Insurance [facility] PPO [facility] PPO BLUE CROSS OUT OF STATE PPO BLUE CROSS OUT OF STATE PPO BLUE CROSS OUT OF STATE PPO BLUE CROSS OUT OF STATE PPO BLUE CROSS OUT OF STATE PPO BLUE CROSS OUT OF STATE PPO [facility] PPO Care Teams Air Intercept Controller Supervisor Relationship Specialty Start Date End Date Pcp, Unknown PCP - General 12/24/21 Pastor Mcclure MD [address] [place] [address], [address] [place] [address] [email or web address] Family Medicine 07/14/18 Additional Source Comments The information contained in this document represents components of the legal health record. It is not the complete legal health record.[facility]
== END 2025-01-28 15:25 | disposition home or self-care (01) ==
LOC: HO.HOS 14:23
PROVIDERS: PCP Nurse Practitioner Family
DX: M19.012 Primary osteoarthritis, left shoulder (principal)
CPT/HCPCS: 20610; 99203

== ENCOUNTER → 2025-01-28 14:22 | Outpatient (BNVA) | payer BC, SELFPAY | PROVIDERS: PCP Nurse Practitioner Family | DX: M25.512 Pain in left shoulder (principal); M19.012 Primary osteoarthritis, left shoulder | CPT/HCPCS: 20610; J0665; J1100; J2003 ==